=== PATIENT | male | born 1955 | race Caucasian/White ===

== ENCOUNTER 2017-08-27 07:00 | Day surgery (SDC) | payer OTHER ==
[2017-08-27] MEDS ORDERED: Ringers Lactate 1,000 ML IV ONE (07:46)
[2017-08-27] MEDS ORDERED: PROPOFOL 200 MG/20 ML VIAL IV ONE ×2 (08:38→09:51)
[2017-08-27] MEDS ORDERED: FENTANYL CITR 100 MCG/2 ML ONE (08:38)
[2017-08-27] MEDS ORDERED: MIDAZOLAM HCL 2 MG/2 ML INJ ONE (08:38)
--- NOTE | 2017-08-27 09:46 | ENDO RPT ---
[address], [address] COLONOSCOPY PROCEDURE REPORT EXAM DATE: 08/27/2017 PATIENT NAME: Vaughn Thaukr MR #: [id number] BIRTHDATE: 1955 ATTENDING: Kana Alexander DR STATUS: outpatient SPLASH LINE OPERATOR: Gregory Torres, [place] Pradhan RN, and Farida Becerra RN INDICATIONS: The patient is a 61 yr old Male here for a colonoscopy due to colon cancer screening PROCEDURE PERFORMED: Colonoscopy with biopsy - cold polypectomy MEDICATIONS: Per Anesthesia. ESTIMATED BLOOD LOSS: None CONSENT: The patient understands the risks and benefits of the procedure and understands that these risks include, but are not limited to: sedation, allergic reaction, infection, perforation and/or bleeding. Alternative means of evaluation and treatment include, among others: physical exam, x-rays, and/or surgical intervention. The patient elects to proceed with this endoscopic procedure. DESCRIPTION OF PROCEDURE: During intra-op preparation period all mechanical medical equipment was checked for proper function. Hand hygiene and appropriate measures for infection prevention was taken. Procedure, possible complications, alternatives including, but not limited to possibility of bleeding, perforation, tear, infection, sepsis, need for surgery, need for blood transfusion, were explained to the patient. After the risks, benefits and alternatives of the procedure were thoroughly explained, Informed consent was verified, confirmed and timeout was successfully executed by the treatment team. The patient was placed in the left lateral position. A digital rectal exam was performed and revealed no abnormalities of the rectum. After appropriate level of anesthesia, the scope was passed. The EC-[id number] ([id number]) endoscope was introduced through the anus and advanced to the cecum, which was identified by both the appendix and ileocecal valve. The quality of the prep was fair. The instrument was then slowly withdrawn as the colon was fully examined. Scope withdrawal time was 15 minutes. COLON FINDINGS: Multiple medium sized smooth sessile polyps with friable surfaces were found at the cecum. A polypectomy was performed using snare cautery. The resection was complete, the polyp tissue was completely retrieved and sent to histology. Multiple medium sized smooth and polypoid shaped semi-pedunculated polyps with friable surfaces were found in the sigmoid colon and at the hepatic flexure. A polypectomy was performed using snare cautery. The resection was complete, the polyp tissue was completely retrieved and sent to histology. Retroflexed views revealed no abnormalities. The scope was then completely withdrawn from the patient and the procedure terminated. ADVERSE EVENTS: There were no complications. IMPRESSIONS: 1. Multiple medium sized sessile polyps were found at the cecum; polypectomy was performed in a piecemeal fashion using snare cautery 2. Multiple medium sized semi-pedunculated polyps were found in the sigmoid colon and at the hepatic flexure; polypectomy was performed in a piecemeal fashion using snare cautery RECOMMENDATIONS: 1. avoid NSAIDS for 2 weeks 2. fiber rich diet 3. follow-up: office 2 week(s) 4. increase dietary water RECALL: Return in 3 month(s) for Colonoscopy, pending biopsy results. Multiple polyps throughout colon,large removed today, smaller will be removed on next colonoscopy Kana Alexander DR eSigned: Kana Alexander DR 08/27/2017 9:46 AM cc: CPT CODES: ICD9 CODES: PATIENT NAME: Vaughn Thakur MR#: [id number]
== END 2017-08-27 10:21 | disposition home or self-care (01) ==
LOC: ENDO 07:00
PROVIDERS: ATTEND Surgery
PROC: 0DBL8ZX Excision of Transverse Colon, Via Natural or Artificial Opening Endoscopic, Diagnostic (ICD-10-PCS; 2017-08-27)
PROC: 0DBN8ZX Excision of Sigmoid Colon, Via Natural or Artificial Opening Endoscopic, Diagnostic (ICD-10-PCS; 2017-08-27)
PROC: 0DBH8ZX Excision of Cecum, Via Natural or Artificial Opening Endoscopic, Diagnostic (ICD-10-PCS; principal; 2017-08-27 08:30)
DX: Z12.11 Encounter for screening for malignant neoplasm of colon (principal); D12.0 Benign neoplasm of cecum; D12.3 Benign neoplasm of transverse colon; D12.5 Benign neoplasm of sigmoid colon; J44.9 Chronic obstructive pulmonary disease, unspecified; I10 Essential (primary) hypertension; Z86.19 Personal history of other infectious and parasitic diseases; Z87.891 Personal history of nicotine dependence; Z88.8 Allergy status to other drugs, medicaments and biological substances
CPT/HCPCS: 88305; J2250; J3010

== ENCOUNTER 2018-01-25 15:49 | Inpatient (IN) | payer OTHER, SELFPAY ==
--- OUTSIDE RECORDS SUMMARY | 2018-01-25 15:52 | XMS REPORT | Clinical Summary ---
:1955 Author Organization [facility] Address [address] [place] [address] Care Team Providers Name Role Phone Pcp, No Primary Care Provider Unavailable Allergies Active Allergy Reactions Severity Noted Date Comments Budesonide Shortness Of Breath High 09/17/2017 Medications Medication Sig Dispensed Refills Start End Date Status Date tamsulosin Take 0.4 mg by 0 Active (FLOMAX) 0.4 mg mouth daily. Cp24 24 hr capsule codeine 30 MG Take 30 mg by 0 Active tablet mouth. montelukast Take 10 mg by 0 Active (SINGULAIR) 10 mg mouth nightly. tablet oxybutynin Take 1 tablet (5 60 tablet 1 12/09/19 Active (DITROPAN) 5 MG mg total) by mouth 8 19 tablet every 8 (eight) hours as needed (bladder spasms). docusate sodium Take 1 capsule 10 capsule 0 10/06/19 (COLACE) 100 MG (100 mg total) by 8 18 capsule mouth 2 (two) times daily for 10 days. ferrous sulfate Take 1 tablet (325 60 tablet 1 11/23/19 Discontinued 325 (65 FE) MG mg total) by mouth 8 18 tablet 2 (two) times daily. mirabegron Take 1 tablet (50 30 tablet 0 11/23/19 Discontinued (MYRBETRIQ) 50 mg mg total) by mouth 8 18 Tb24 ER tablet daily. oxybutynin Take 1 tablet (5 30 tablet 0 12/09/19 Discontinued (DITROPAN) 5 MG mg total) by mouth 8 18 tablet every 8 (eight) hours as needed (bladder spasms). ciprofloxacin HCl ciprofloxacin 500 0 12/09/19 Discontinued (CIPRO) 500 MG mg tablet daily 18 tablet docusate sodium Take 1 capsule 10 capsule 0 12/19/19 (COLACE) 100 MG (100 mg total) by 8 18 capsule mouth 2 (two) times daily for 10 days. Active Problems Problem Noted Date Hematuria, unspecified type 12/03/2017 Hepatocellular carcinoma 11/24/2017 Chronic hepatitis C without hepatic coma 11/24/2017 Immunity status testing 11/24/2017 Cancer screening 11/24/2017 Other cirrhosis of liver 11/24/2017 SOB (shortness of breath) 09/19/2017 Abdominal pain, unspecified abdominal location 09/17/2017 Encounters Date Type Specialty Care Team Description 12/03/2017 - Hospital Encounter Oncology [place], Hematuria, unspecified type (Primary Dx); 12/08/2017 Renan Siegel MD Hepatocellular carcinoma; Shyanne Cardona MD Abdominal pain, unspecified abdominal location; Chronic hepatitis C without hepatic coma (HCC); Bladder mass; Malignant neoplasm of urinary bladder, unspecified site (HCC) 11/22/2017 Office Visit Hepatology Marie Mohr Hepatocellular carcinoma ( Primary Dx); MD Sacha Abdominal pain, unspecified abdominal location; Dangelo Quesada Malignant neoplasm of urinary bladder, unspecified site (HCC); MD [place] Chronic hepatitis C without hepatic coma (HCC); Immunity status testing; Chronic hepatitis C without hepatic coma; Cancer screening; Other cirrhosis of liver 09/20/2017 Anesthesia Event Crys Elizondo CRNA 09/20/2017 Surgery Jeff CYSTOSCOPY,TURBT MD [place] 09/17/2017 - Emergency General Internal Damien Doe Abdominal pain, unspecified abdominal location (Primary Dx); 09/25/2017 Medicine MD Henry Gross hematuria; Edilma Ruelas Malignant neoplasm of urinary bladder, unspecified site (HCC); D Hepatitis C virus infection without hepatic coma, unspecified chronicity; Shyanne Cardona MD Chronic obstructive pulmonary disease, unspecified COPD type (HCC); Jeff, Cirrhosis of liver without ascites, unspecified hepatic cirrhosis type (HCC); MD [place] Hepatocellular carcinoma (HCC); Portal vein thrombosis; Immunity status testing; Chronic hepatitis C without hepatic coma (HCC); SOB (shortness of breath) after 01/24/2017 Family History Medical History Relation Name Comments Liver cancer Brother Relation Name Status Comments Brother Social History Tobacco Use Types Packs/Day Years Used Date Former Smoker Smokeless Tobacco: Never Used Comments: quit 1 year Alcohol Use Drinks/Week oz/Week Comments Yes quit 2 years Sex Assigned at Date Recorded Not on file Job Start Date Occupation Industry Not on file Not on file Not on file Travel History Travel Start Travel End No recent travel history available. Last Filed Vital Signs Vital Sign Reading Time Taken Blood Pressure 122/57 12/08/2017 11:00 AM CDT Pulse 67 12/08/2017 11:00 AM CDT Temperature 36.6 C (97.8 F) 12/08/2017 11:00 AM CDT Respiratory Rate 19 12/08/2017 11:00 AM CDT Oxygen Saturation 97% 12/08/2017 11:00 AM CDT Inhaled Oxygen Concentration 21% 09/17/2017 9:37 PM CDT Weight 106.1 kg (234 lb) 12/03/2017 8:00 PM CDT Height 182.9 cm (6') 12/03/2017 8:00 PM CDT Body Mass Index 31.74 12/03/2017 8:00 PM CDT Plan of Treatment Health Maintenance Due Date Last Done Comments INFLUENZA VACCINE 12/17/2017 Procedures Procedure Name Priority Date/Time Associated Comments Diagnosis HEMOGLOBIN AND Routine 12/08/2017 4:05 Results for this HEMATOCRIT AM CDT procedure are in the results section. HEMOGLOBIN AND Routine 12/07/2017 3:55 Results for this HEMATOCRIT AM CDT procedure are in the results section. HEMOGLOBIN AND Routine 12/06/2017 6:50 Results for this HEMATOCRIT AM CDT procedure are in the results section. BASIC METABOLIC PANEL Routine 12/06/2017 6:50 Results for this (7) AM CDT procedure are in the results section. BASIC METABOLIC PANEL Routine 12/05/2017 5:22 Results for this (7) AM CDT procedure are in the results section. HEPATIC FUNCTION Routine 12/05/2017 5:22 Results for this PANEL AM CDT procedure are in the results section. POCT-GLUCOSE METER Routine 12/04/2017 5:15 Results for this PM CDT procedure are in the results section. CBC W/PLT COUNT & Routine 12/04/2017 3:44 Results for this AUTO DIFFERENTIAL AM CDT procedure are in the results section. BASIC METABOLIC PANEL Routine 12/04/2017 3:44 Results for this (7) AM CDT procedure are in the results section. CBC W/PLT COUNT & Routine 12/04/2017 3:44 Results for this AUTO DIFFERENTIAL AM CDT procedure are in the results section. URINE CULTURE Routine 12/03/2017 6:06 Results for this PM CDT procedure are in the results section. URINALYSIS W/ REFLEX Routine 12/03/2017 6:05 Results for this URINE CULTURE PM CDT procedure are in the results section. BLOOD CULTURE Routine 12/03/2017 4:41 Results for this PM CDT procedure are in the results section. BLOOD CULTURE Routine 12/03/2017 4:41 Results for this PM CDT procedure are in the results section. CBC W/PLT COUNT & STAT 12/03/2017 11:55 Results for this AUTO DIFFERENTIAL AM CDT procedure are in the results section. MAGNESIUM STAT 12/03/2017 11:55 Results for this AM CDT procedure are in the results section. PT/APTT STAT 12/03/2017 11:55 Results for this AM CDT procedure are in the results section. CBC W/PLT COUNT & STAT 12/03/2017 11:55 Results for this AUTO DIFFERENTIAL AM CDT procedure are in the results section. COMPREHENSIVE STAT 12/03/2017 11:55 Results for this METABOLIC PANEL AM CDT procedure are in the results section. URINALYSIS Routine 12/03/2017 11:50 Results for this MICROSCOPIC AM CDT procedure are in the results section. URINALYSIS WITH STAT 12/03/2017 11:50 Results for this MICROSCOPIC IF AM CDT procedure are in INDICATED the results section. PULMONARY FUNCTION - 09/25/2017 3:52 SCAN PM CDT C-REACTIVE PROTEIN Routine 09/25/2017 5:49 Results for this AM CDT procedure are in the results section. PROCALCITONIN Routine 09/25/2017 5:49 Results for this AM CDT procedure are in the results section. BLOOD CULTURE Routine 09/25/2017 5:48 Results for this AM CDT procedure are in the results section. URINALYSIS W/ REFLEX Routine 09/24/2017 9:24 Results for this URINE CULTURE PM CDT procedure are in the results section. URINE CULTURE Routine 09/24/2017 9:24 Results for this PM CDT procedure are in the results section. XR CHEST 1 VIEW STAT 09/24/2017 11:36 Results for this PORTABLE/BEDSIDE AM CDT procedure are in the results section. BASIC METABOLIC PANEL Routine 09/24/2017 6:10 Results for this (7) AM CDT procedure are in the results section. CBC (HEMOGRAM ONLY) Routine 09/24/2017 6:10 Results for this AM CDT procedure are in the results section. BASIC METABOLIC PANEL Routine 09/23/2017 5:20 Results for this (7) AM CDT procedure are in the results section. CBC (HEMOGRAM ONLY) Routine 09/23/2017 5:20 Results for this AM CDT procedure are in the results section. BASIC METABOLIC PANEL Routine 09/22/2017 5:19 Results for this (7) AM CDT procedure are in the results section. CBC (HEMOGRAM ONLY) Routine 09/22/2017 5:19 Results for this AM CDT procedure are in the results section. TISSUE EXAM AP Routine 09/21/2017 10:18 Results for this PM CDT procedure are in the results section. US LIVER BIOPSY Routine 09/21/2017 5:21 Results for this PM CDT procedure are in the results section. SPIROMETRY Routine 09/21/2017 10:13 Results for this AM CDT procedure are in the results section. T SPOT TB Routine 09/21/2017 5:08 Results for this AM CDT procedure are in the results section. TISSUE EXAM AP Routine 09/20/2017 5:42 Results for this PM CDT procedure are in the results section. CYSTOSCOPY,TURBT 09/20/2017 3:00 Hematuria, PM CDT unspecified type Special Needs REQ 1500 OR SOONER [id number]\, SERUM Routine 09/20/2017 5:46 AM Results for this CDT procedure are in the results section. HEPATITIS B CORE ANTIBODY, TOTAL Routine 09/20/2017 5:46 AM Results for this CDT procedure are in the results section. HEPATITIS A ANTIBODY, IGG Routine 09/20/2017 5:46 AM Results for this CDT procedure are in the results section. HEPATITIS B SURFACE ANTIBODY Routine 09/20/2017 5:46 AM Results for this CDT procedure are in the results section. CARCINOEMBRYONIC ANTIGEN (CEA) Routine 09/20/2017 5:46 AM Results for this CDT procedure are in the results section. ALPHA FETOPROTEIN (AFP), TUMOR Routine 09/20/2017 5:46 AM Results for this MARKER CDT procedure are in the results section. COMPREHENSIVE METABOLIC PANEL Routine 09/20/2017 5:46 AM Results for this CDT procedure are in the results section. CBC (HEMOGRAM ONLY) Routine 09/20/2017 5:46 AM Results for this CDT procedure are in the results section. MAGNESIUM Routine 09/20/2017 5:46 AM Results for this CDT procedure are in the results section. LIPID PANEL Routine 09/20/2017 5:46 AM Results for this CDT procedure are in the results section. PROTHROMBIN TIME/INR Routine 09/20/2017 5:46 AM Results for this CDT procedure are in the results section. HEMOGLOBIN A1C Routine 09/20/2017 5:46 AM Results for this CDT procedure are in the results section. HEPATIC FUNCTION PANEL Routine 09/20/2017 5:46 AM Results for this CDT procedure are in the results section. CALCIUM, IONIZED Routine 09/20/2017 5:46 AM Results for this CDT procedure are in the results section. PHOSPHORUS Routine 09/20/2017 5:46 AM Results for this CDT procedure are in the results section. FERRITIN Routine 09/20/2017 5:46 AM Results for this CDT procedure are in the results section. CERULOPLASMIN Routine 09/20/2017 5:45 AM Results for this CDT procedure are in the results section. HEPATITIS C PCR, QUANTITATIVE Routine 09/20/2017 5:45 AM Results for this CDT procedure are in the results section. HEPATITIS B SURFACE ANTIGEN Routine 09/20/2017 5:45 AM Results for this CDT procedure are in the results section. CARBOHYDRATE ANTIGEN 19-9 (CA Routine 09/20/2017 5:45 AM Results for this 19-9) CDT procedure are in the results section. IRON, TIBC, % SAT. (WITHOUT Routine 09/20/2017 5:45 AM Results for this FERRITIN) CDT procedure are in the results section. ALPHA FETOPROTEIN (AFP), TUMOR Routine 09/19/2017 2:22 PM Results for this MARKER CDT procedure are in the results section. COMPREHENSIVE METABOLIC PANEL Routine 09/19/2017 6:19 AM Results for this CDT procedure are in the results section. CBC (HEMOGRAM ONLY) Routine 09/19/2017 6:19 AM Results for this CDT procedure are in the results section. MAGNESIUM Routine 09/19/2017 6:19 AM Results for this CDT procedure are in the results section. LIPID PANEL Routine 09/19/2017 6:19 AM Results for this CDT procedure are in the results section. HEMOGLOBIN A1C Routine 09/19/2017 6:19 AM Results for this CDT procedure are in the results section. HEPATIC FUNCTION PANEL Routine 09/19/2017 6:19 AM Results for this CDT procedure are in the results section. CALCIUM, IONIZED Routine 09/19/2017 6:19 AM Results for this CDT procedure are in the results section. PHOSPHORUS Routine 09/19/2017 6:19 AM Results for this CDT procedure are in the results section. PROTHROMBIN TIME/INR Routine 09/19/2017 6:18 AM Results for this CDT procedure are in the results section. MR ABDOMEN WITH/WITHOUT IV Routine 09/18/2017 2:39 PM Results for this CONTRAST CDT procedure are in the results section. CBC W/PLT COUNT & AUTO Routine 09/18/2017 3:48 AM Results for this DIFFERENTIAL CDT procedure are in the results section. CBC W/PLT COUNT & AUTO Routine 09/18/2017 3:48 AM Results for this DIFFERENTIAL CDT procedure are in the results section. MAGNESIUM Routine 09/18/2017 3:48 AM Results for this CDT procedure are in the results section. LIPID PANEL Routine 09/18/2017 3:48 AM Results for this CDT procedure are in the results section. PROTHROMBIN TIME/INR Routine 09/18/2017 3:48 AM Results for this CDT procedure are in the results section. HEMOGLOBIN A1C Routine 09/18/2017 3:48 AM Results for this CDT procedure are in the results section. HEPATIC FUNCTION PANEL Routine 09/18/2017 3:48 AM Results for this CDT procedure are in the results section. CALCIUM, IONIZED Routine 09/18/2017 3:48 AM Results for this CDT procedure are in the results section. BASIC METABOLIC PANEL (7) Routine 09/18/2017 3:48 AM Results for this CDT procedure are in the results section. CBC W/PLT COUNT & AUTO Routine 09/18/2017 3:48 AM Results for this DIFFERENTIAL CDT procedure are in the results section. PHOSPHORUS Routine 09/18/2017 3:48 AM Results for this CDT procedure are in the results section. CBC W/PLT COUNT & AUTO Routine 09/18/2017 3:48 AM Results for this DIFFERENTIAL CDT procedure are in the results section. CT ABDOMEN/PELVIS WITH IV STAT 09/17/2017 6:18 PM Results for this CONTRAST CDT procedure are in the results section. CT CHEST WITH IV CONTRAST STAT 09/17/2017 6:18 PM Results for this CDT procedure are in the results section. CBC W/PLT COUNT & AUTO STAT 09/17/2017 3:19 PM Results for this DIFFERENTIAL CDT procedure are in the results section. BASIC METABOLIC PANEL (7) STAT 09/17/2017 3:19 PM Results for this CDT procedure are in the results section. CBC W/PLT COUNT & AUTO STAT 09/17/2017 3:19 PM Results for this DIFFERENTIAL CDT procedure are in the results section. URINALYSIS W/ REFLEX URINE STAT 09/17/2017 3:01 PM Results for this CULTURE CDT procedure are in the results section. URINE CULTURE STAT 09/17/2017 3:01 PM Results for this CDT procedure are in the results section. after 01/24/2017 Results Hemoglobin and hematocrit (12/08/2017 4:05 AM CDT)Only the most recent of3 resultswithin the time period is included. Hemoglobin 10.6 (L) 13.7 - 17.5 GM/DL [facility] Hematocrit 35.6 (L) 40.1 - 51.0 % [facility] Specimen Blood Performing Organization Address City/State/Zipcode Phone Number [address] [address] CENTER Basic metabolic panel (12/06/2017 6:50 AM CDT)Only the most recent of8 resultswithin the time period is included. Sodium 139 136 - 145 meq/L [facility] Potassium 4.2 3.5 - 5.1 meq/L [facility] Chloride 108 (H) 98 - 107 meq/L [facility] CO2 27 22 - 29 meq/L [facility] BUN 7 7 - 21 mg/dL [facility] Creatinine 0.70 0.57 - 1.25 mg/dL [facility] Glucose 89 70 - 105 mg/dL [facility] Calcium 8.7 8.4 - 10.2 mg/dL [facility] EGFR 114Comment: ESTIMATED GFR IS mL/min/1.73 sq m [facility] NOT ACCURATE [facility] CLEARANCE IN PREDICTING GLOMERULAR FILTRATION RATE. ESTIMATED GFR IS NOT APPLICABLE FOR DIALYSIS PATIENTS. Specimen Blood - Arm, Left Performing Organization Address City/[facility] Cent[facility]ode Phone Number [address] [address] [phone] [place] Hepatic function panel (12/05/2017 5:22 AM CDT)Only the most recent of4 resultswithin the time period is included. Protein, Total 6.1 6.0 - 8.3 gm/dL [facility] Albumin 3.1 (L) 3.5 - 5.0 g/dL [facility] Total Bilirubin 0.4 0.2 - 1.2 mg/dL [facility] Bilirubin, Direct 0.2 0.1 - 0.5 mg/dL [facility] Alkaline Phosphatase 131 40 - 150 U/L [facility] AST 66 (H) 5 - 34 U/L [facility] ALT 35 6 - 55 U/L [facility] Specimen Blood - Arm, Left Performing Organization Address [facility] Phone Number [address] [address] [phone] [place] POC-Glucose meter (12/04/2017 5:15 PM CDT) POC-Glucose Meter 95Comment: TESTED AT 70 - 110 mg/dL [address] [address] Specimen Blood Performing Organization Address City/[facility]/Zipcode Phone Number [address] [address] [phone] CENTER CBC with platelet count + automated diff (12/04/2017 3:44 AM CDT)Only the most recent of5 resultswithin the time period is included. WBC 3.1 (L) 3.5 - 10.5 K/L [facility] RBC 4.36 (L) 4.63 - 6.08 M/L [facility] Hemoglobin 10.4 (L) 13.7 - 17.5 GM/DL [facility] Hematocrit 35.1 (L) 40.1 - 51.0 % [facility] MCV 80.5 79.0 - 92.2 fL [facility] MCH 23.9 (L) 25.7 - 32.2 pg [facility] MCHC 29.6 (L) 32.3 - 36.5 GM/DL [facility] RDW 15.6 (H) 11.6 - 14.4 % [facility] Platelets 137 (L) 150 - 450 K/CU MM [facility] MPV 10.6 9.4 - 12.4 fL [facility] nRBC 0 0 - 0 /100 WBC [facility] % Neutros 62 % [facility] % Lymphs 21 % [facility] % Monos 13 % [facility] % Eos 3 % [facility] % Baso 0 % [facility] # Neutros 1.92 1.78 - 5.38 K/L [facility] # Lymphs 0.64 (L) 1.32 - 3.57 K/L [facility] # Monos 0.41 0.30 - 0.82 K/L [facility] # Eos 0.09 0.04 - 0.54 K/L [facility] # Baso 0.01 0.01 - 0.08 K/L [facility] Immature Granulocytes-Relative 0 0 - 1 % [facility] Specimen Blood - Arm, Left Performing Organization Address City/[facility]/Zipcode Phone Number [facility] [address] [place] [phone] CENTER Urine culture (12/03/2017 6:06 PM CDT)Only the most recent of3 resultswithin the time period is included. Result No growth [facility] Specimen Urine - Urine, [place] Performing Organization Address [facility]/Zipcode Phone Number [address] [address] [phone] [place] Urinalysis w/Microscopic + Reflex to Culture (12/03/2017 6:05 PM CDT)Only the most recent of3 resultswithin the time period is included. Color, UA Brown [facility] Clarity, UA Cloudy [facility] Specific [place], UA 1.030 1.001 - 1.[address] [facility] pH, UA 6.0 5.0 - 8.[address] [facility] Protein, UA 100 mg/dL (A) Negative [facility] Glucose, UA Negative Negative [facility] Ketones, UA Negative Negative [facility] Bilirubin, UA Positive (A) Negative [facility] Blood, UA Large (A) Negative [facility] Nitrite, UA Positive (A) Negative [facility] Leukocytes, UA Trace (A) Negative [facility] Urobilinogen, UA 4.0 (H) 0.2 - 1.0 mg/dL [facility] RBC, UA >183 /HPF [facility] WBC, UA 0 /HPF [facility] Specimen Source [facility] Specimen Urine - Urine, [place] Performing Organization Address [facility]/Zipcode Phone Number [address] [address] CENTER Blood culture (12/03/2017 4:41 PM CDT)Only the most recent of3 resultswithin the time period is included. Result No growth in 5 days [facility] Specimen Blood - Arm, Right Performing Organization Address [facility] Cent[facility]ode Phone Number [address] [address] [place] PT/aPTT (12/03/2017 11:55 AM CDT) Protime 14.5 11.7 - 14.[address] [facility] INR 1.1 <=5.[address] [facility] PTT 28.2 22.5 - 36.[address] [facility] Specimen Blood - Arm, Left Narrative Performed At [facility] RECOMMENDED COUMADIN/WARFARIN INR THERAPY RANGES STANDARD DOSE: 2.0 - 3.0 Includes: PROPHYLAXIS for venous thrombosis, systemic embolization; TREATMENT for venous thrombosis and/or pulmonary embolus. HIGH RISK: Target INR is 2.5-3.5 for patients with mechanical heart valves. Performing Organization Address [facility] Centercodc Phone Number [address] [address] [phone] CENTER Magnesium (12/03/2017 11:55 AM CDT)Only the most recent of4 resultswithin the time period is included. Magnesium 1.8 1.6 - 2.6 mg/dL [facility] Specimen Blood - Arm, Left Performing Organization Address [facility] Centercode Phone Number [address] [address] [place] Comprehensive metabolic panel (12/03/2017 11:55 AM CDT)Only the most recent of3 resultswithin the time period is included. Protein, Total 6.7 6.0 - 8.3 gm/dL [facility] Albumin 3.5 3.5 - 5.0 g/dL [facility] Alkaline Phosphatase 141 40 - 150 U/L [facility] Total Bilirubin 0.4 0.2 - 1.2 mg/dL [facility] Sodium 137 136 - 145 meq/L [facility] Potassium 3.6 3.5 - 5.1 meq/L [facility] Chloride 105 98 - 107 meq/L [facility] CO2 26 22 - 29 meq/L [facility] BUN 10 7 - 21 mg/dL [facility] Creatinine 0.78 0.57 - 1.25 mg/dL [facility] Glucose 112 (H) 70 - 105 mg/dL [facility] Calcium 9.2 8.4 - 10.2 mg/dL [facility] AST 68 (H) 5 - 34 U/L [facility] ALT 39 6 - 55 U/L [facility] EGFR 101Comment: ESTIMATED mL/min/1.73 sq m [facility] GFR IS NOT ACCURATE [facility] CREATININE CLEARANCE IN PREDICTING GLOMERULAR FILTRATION RATE. ESTIMATED GFR IS NOT APPLICABLE FOR DIALYSIS PATIENTS. Specimen Blood - Arm, Left Performing Organization Address City/[facility]/Zipcode Phone Number [address] [address] [phone] CENTER Urinalysis Microscopic Only (12/03/2017 11:50 AM CDT) RBC, UA 500 /HPF [facility] WBC, UA 10 /HPF [facility] Specimen Urine - Urine, Voided Performing Organization Address City/[facility] Centercode Phone Number [address] [place] [address] [phone] [place] Urinalysis with Microscopic If Indicated (12/03/2017 11:50 AM CDT) Color, UA Brown [facility] Clarity, UA Cloudy [facility] Specific [place], UA 1.030 1.001 - 1.[address] [facility] pH, UA 6.0 5.0 - 8.[address] [facility] Protein, UA 200 mg/dL (A) Negative [facility] Glucose, UA Negative Negative [facility] Ketones, UA Negative Negative [facility] Bilirubin, UA Positive (A) Negative [facility] Blood, UA Large (A) Negative [facility] Nitrite, UA Positive (A) Negative [facility] Leukocytes, UA Trace (A) Negative [facility] Urobilinogen, UA 6.0 (H) 0.2 - 1.0 mg/dL [facility] Specimen Source [facility] Specimen Urine - Urine, Voided Performing Organization Address [facility] Centercode Phone Number [address] [address] [place] PULMONARY FUNCTION - SCAN (09/25/2017 3:52 PM CDT) Narrative Performed At Procalcitonin (09/25/2017 5:49 AM CDT) Procalcitonin 0.10 (H) <0.05 ng/mL [facility] Specimen Blood - Arm, Left Narrative Performed At [facility] SEPSIS RISK (ng/mL) Low:0.05-0.50 Intermediate: 0.51-2.00 High: >=2.01 Performing Organization Address [facility] Phone Number [address] [place] [address] CENTER C-Reactive Protein (09/25/2017 5:49 AM CDT) CRP 6.73 (H) 0.00 - 0.50 mg/dL [facility] Specimen Blood - Arm, Left Performing Organization Address City/[facility]/Zipcode Phone Number [address] [address] [place] XR chest 1 view portable / bedside (09/24/2017 11:36 AM CDT) Narrative Performed At FINAL REPORT [facility] Two frontal chest images compared to CT September 17 Discussion: Linear atelectasis or scar left lateral lingula unchanged from CT. Ill-defined patchy opacity right lower lung is nonspecific, not confirmed on recent CT. Atelectasis and acute infiltrate are possibilities. Correlate clinically for infection. No effusion or pneumothorax. IMPRESSIONS: Suspected new ill-defined patchy opacity right lower lung. Correlate clinically and consider short-term chest x-ray follow-up. Signed: Glory Lamas MD Report Verified Date/Time:09/24/2017 12:06:36 Reading Location: [facility] Radiology Reading Room Procedure Note Interface, External Ris In - 09/24/2017 12:08 PM CDT FINAL REPORT Two frontal chest images compared to CT September 17 Discussion: Linear atelectasis or scar left lateral lingula unchanged from CT. Ill-defined patchy opacity right lower lung is nonspecific, not confirmed on recent CT. Atelectasis and acute infiltrate are possibilities. Correlate clinically for infection. No effusion or pneumothorax. IMPRESSIONS: Suspected new ill-defined patchy opacity right lower lung. Correlate clinically and consider short-term chest x-ray follow-up. Signed: Glory Lamas MD Report Verified Date/Time: 09/24/2017 12:06:36 Reading Location: [facility] Radiology Reading Room Performing Organization Address City/State/[facility] Cent[facility]ode Phone Number GE RIS CBC (Hemogram only) (09/24/2017 6:10 AM CDT)Only the most recent of5 resultswithin the time period is included. WBC 4.6 3.5 - 10.5 K/L [facility] RBC 3.99 (L) 4.63 - 6.08 M/L [facility] Hemoglobin 11.1 (L) 13.7 - 17.5 GM/DL [facility] Hematocrit 34.9 (L) 40.1 - 51.0 % [facility] MCV 87.5 79.0 - 92.[address] [facility] MCH 27.8 25.7 - 32.2 [address] [facility] MCHC 31.8 (L) 32.3 - 36.5 GM/DL [facility] RDW 13.4 11.6 - 14.4 % [facility] Platelets 136 (L) 150 - 450 K/CU MM [facility] MPV 10.1 9.4 - 12.[address] [facility] nRBC 0 0 - 0 /100 WBC [facility] Specimen Blood Performing Organization Address City/State/Zipcode Phone Number [facility] [address] [place] [address] CENTER Tissue Exam (09/21/2017 10:18 PM CDT)Only the most recent of2 resultswithin the time period is included. Case Report Surgical Pathology Report Case: [id number] [facility] Authorizing Provider:Edilma Ruelas DCollected: 09/21/2017 2218 [facility] Ordering Location: [address] Received: 09/21/2017 2223 Service Pathologist: Earl Anand MD Specimen:Biopsy, Liver, Bx DIAGNOSIS LIVER, ULTRASOUND-GUIDED BIOPSIES OF MASS [facility] - HEPATOCELLULAR CARCINOMA, MODERATELY DIFFERENTIATED [facility] Signing Pathologist Direct Phone Line: [phone] CPT Code(s) 85567, 33265, 27302, [address] [facility] CLINICAL HISTORY Liver cirrhosis and liver mass, [facility] hepatitis C and urinary bladder [facility] cancer SPECIMEN SOURCE Ultrasound-guided biopsy of left [facility] hepatic mass [facility] GROSS DESCRIPTION Received in formalin labeled with patient's name and MRN are multiple saunders white tissue cores ranging from 0.2 to 0.6 cm. Entirely submitted in A1. [facility] MICROSCOPIC DESCRIPTION Section shows a moderately differentiated hepatocellular carcinoma disposed in thickened trabecular architecture ( reticulin stain). The background liver is cirrhotic. [facility] Immunostain for CD34 shows aberrant staining in the sinusoidal endothelial cells. Immunostain for CHU 3 is negative. [facility] SPECIAL STUDIES The following special studies were performed on this case and the interpretation is incorporated in the diagnostic report above: [facility] The immunohistochemistry test was developed and its performance characteristics determined by [facility], Pathology Laboratory. It has not been cleared or approved by the U.S. Food and [facility] Drug Administration. The FDA has determined that such clearance or approval is not necessary. The test is used for clinical purposes. It should not be regarded as investigational or for research. This laboratory is certified under the Clinical Laboratory Improvement Amendments of 1988 (CLIA-88) as qualified to perform high complexity clinical laboratory testing. Specimen Tissue - Biopsy, Liver Performing Organization Address City/State/Zipcode Phone Number [facility] [address] [place] [address] [phone] [facility] liver biopsy (09/21/2017 5:21 PM CDT) Narrative Performed At FINAL REPORT [facility] Ultrasound guided liver biopsy dated 09/21/2017 Procedure: Core liver biopsy. Preprocedure diagnosis: Liver mass Post procedure diagnosis: Liver mass Radiologist performing procedure: James Barton MD Name of Store Host: None Sedation: Moderate sedation was administered.2 mg of Versed and 100 mcg fentanyl IV was used for moderate sedation monitored under my direction. Total intraservice time of the sedation was 30 minutes. The patient's vital signs were monitored throughout the procedure and recorded in the patient's medical record by the nurse. Anesthesia: 1% Xylocaine mixed with sodium bicarbonate local anesthesia. Technique/specimen removed: After obtained informed consent, ultrasound guided core biopsy of the liver was performed under usual sterile technique. Using an 18 gauge core biopsy needle, puncture was made in the mid upper abdomen with real time ultrasound guidance. Two passes were obtained from left hepatic lobe mass. Patient tolerated procedure well. Complication: None Estimated Blood Loss: None Graft/implants: None Impression: Successful ultrasound-guided core biopsy of the left hepatic lobe mass. Signed: James Barton MD Report Verified Date/Time:09/21/2017 17:50:41 Reading Location: [address] Ultrasound Reading Room Procedure Note Interface, External Ris In - 09/21/2017 5:53 PM CDT FINAL REPORT Ultrasound guided liver biopsy dated 09/21/2017 Procedure: Core liver biopsy. Preprocedure diagnosis: Liver mass Post procedure diagnosis: Liver mass Radiologist performing procedure: James Barton MD Name of Store Host: None Sedation: Moderate sedation was administered. 2 mg of Versed and 100 mcg fentanyl IV was used for moderate sedation monitored under my direction. Total intraservice time of the sedation was 30 minutes. The patient's vital signs were monitored throughout the procedure and recorded in the patient's medical record by the nurse. Anesthesia: 1% Xylocaine mixed with sodium bicarbonate local anesthesia. Technique/specimen removed: After obtained informed consent, ultrasound guided core biopsy of the liver was performed under usual sterile technique. Using an 18 gauge core biopsy needle, puncture was made in the mid upper abdomen with real time ultrasound guidance. Two passes were obtained from left hepatic lobe mass. Patient tolerated procedure well. Complication: None Estimated Blood Loss: None Graft/implants: None Impression: Successful ultrasound-guided core biopsy of the left hepatic lobe mass. Signed: James Barton MD Report Verified Date/Time: 09/21/2017 17:50:41 Reading Location: [address] Ultrasound Reading Room Performing Organization Address City/State/Zipcode Phone Number [facility] Pulmonary Funct Lab Spirometry (09/21/2017 10:13 AM CDT) Narrative Performed At Walter Arroyo RRT, SHASHI 09/21/2017 10:13 AM [facility] PFT CHARTING REPORT Infection Control/Hand Hygiene procedures followed throughout the encounter with patient: Yes Patient Identification Method: Patient name verified on armband, and Medical record on armband, Is the order complete?: Yes Account ID#: [id number] Patient Name: Vaughn Thakur Birthdate: 1955 Age: 61 y.o.Sex: male Admission Date: 09/17/2017Patient Status: Inpatient Reasons/Symptom for having the Test?: surgical clearance and other diagnosis/symptoms as noted Type of study/treatment ordered by physician: Bedside Spirometry without bronchodilators Lab Results Component Value Date HGB 11.6 (L) 09/20/2017 Ranges: Adult Male 13 - 16.8 g/dlAdult Female 12 - 15 g/dl 6 Minute Walk (read only) 09/21/2017 09/21/2017 09/21/2017 Pulse 62 72 70 SpO2 93 95 95 Study Date: 09/21/17tudy Time: 945 ASSESSMENT History & Physical Mode of Arrival: Testing was performed at patient bedside Pulse: 74Resp: 18SPO2: 96 %on ra Pain Assessment Pain:None TESTING/THERAPEUTICS Medications ordered or required for procedure: N/A PT EDUCATION/INSTRUCTIONS Barriers to learning: No known barriers to learning. Learning need identified: Yes, Patient/Family/Guradian was informed of the ordered study by the physician Barriers to performing study or treatment: Patient has no known disability to perform the study or treatment. DISCHARGE The study was completed in accordance with the physician's order and patient released from the lab without adverse outcome. T Spot TB (09/21/2017 5:08 AM CDT) T-Spot TB Positive [facility] Neg Ctrl Spot Count 0 [facility] Panel A Spot 8 [facility] Panel B Spot 24 [facility] Pos Ctrl Spot Ct 0 [facility] Scan Result [facility] Specimen Blood - Arm, Left Narrative Performed At Performing Organization Address City/State/Zipcode Phone Number [facility] [address] [place] [address] LAB[address]ATORIES [address] Hepatitis A antibody, IgG (09/20/2017 5:46 AM CDT) Hep A IgG Reactive (A) Nonreactive [facility] Specimen Blood - Arm, Left Performing Organization Address [facility] Centercode Phone Number [address] [address] [phone] [place] Calcium, Ionized (09/20/2017 5:46 AM CDT)Only the most recent of3 resultswithin the time period is included. Calcium, Ion 1.10 (L) 1.12 - 1.27 mmol/L [facility] pH, Blood 7.42 [facility] Specimen Blood - Arm, Left Performing Organization Address [facility] Phone Number [address] [address] C[place] Evdbn-4-pbzzefhhivd (09/20/2017 5:46 AM CDT) A-1 Antitrypsin 196.20 90.00 - 200.00 mg/dL [facility] Specimen Blood - Arm, Left Performing Organization Address [facility] Phone Number [address] [address] [phone] [place] Alpha fetoprotein (AFP), tumor marker (09/20/2017 5:46 AM CDT)Only the most recent of2 resultswithin the time period is included. Alpha-Fetoprotein 5.2 <10.0 ng/mL [facility] Specimen Blood - Arm, Left Performing Organization Address [facility] Centercode Phone Number [address] [address] [phone] [place] Hepatitis B core antibody, total (09/20/2017 5:46 AM CDT) Hep B Core Total Ab REACTIVE (A) Nonreactive [facility] Specimen Blood - Arm, Left Performing Organization Address [facility]erc[facility] Phone Number [address] [address] C[place] Hepatitis B surface antibody (09/20/2017 5:46 AM CDT) Hep B S Ab 156.4 (H) <8.0 mIU/mL [facility] Specimen Blood - Arm, Left Performing Organization Address City/State/Zipcode Phone Number [address] [address] C[place] Prothrombin time/INR (09/20/2017 5:46 AM CDT)Only the most recent of3 resultswithin the time period is included. Protime 14.1 11.7 - 14.[address] [facility] INR 1.1 <=5.[address] [facility] Specimen Blood - Arm, Left Narrative Performed At [facility] RECOMMENDED COUMADIN/WARFARIN INR THERAPY RANGES STANDARD DOSE: 2.0 - 3.0 Includes: PROPHYLAXIS for venous thrombosis, systemic embolization; TREATMENT for venous thrombosis and/or pulmonary embolus. HIGH RISK: Target INR is 2.5-3.5 for patients with mechanical heart valves. Performing Organization Address [facility] Cent[facility]ode Phone Number [address] [address] C[place] Phosphorus (09/20/2017 5:46 AM CDT)Only the most recent of3 resultswithin the time period is included. Phosphorus 3.1 2.3 - 4.7 mg/dL [facility] Specimen Blood - Arm, Left Performing Organization Address City/[facility] Centerc[facility] Phone Number [address] [address] CENTER Hemoglobin A1c (09/20/2017 5:46 AM CDT)Only the most recent of3 resultswithin the time period is included. Hemoglobin A1C 5.3 4.3 - 6.1 % [facility] Specimen Blood - Arm, Left Performing Organization Address City/[facility]/Zipcode Phone Number [address] [address] [phone] CENTER Ferritin (09/20/2017 5:46 AM CDT) Ferritin 39 5 - 275 ng/mL [facility] Specimen Blood - Arm, Left Performing Organization Address City/[facility] Phone Number [address] [address] C[place] Carcinoembryonic Antigen (CEA) (09/20/2017 5:46 AM CDT) CEA, SERUM 4.1 0.0 - 5.0 ng/mL [facility] Specimen Blood - Arm, Left Performing Organization Address [facility] Phone Number [address] [address] [phone] CENTER Lipid panel (09/20/2017 5:46 AM CDT)Only the most recent of3 resultswithin the time period is included. Triglycerides 64 mg/dL [facility] Cholesterol 132 mg/dL [facility] HDL 29 mg/dL [facility] LDL Calculated 90 mg/dL [facility] Specimen Blood - Arm, Left Narrative Performed At [facility] Triglyceride Reference Range: Low Risk <150 [id number] High Risk 200-499 Very High Risk>=500 Cholesterol Reference Range: Low Risk <200 Ffwdfcpgcd014-947 High Risk>240 HDL Cholesterol Reference Range: Low Risk >=60 High Risk <40 LDL Cholesterol Reference Range: Optimal<100 Near Qvpjlmz422-249 Naxrhycyai551-410 Cvgs173-803 Very High >=190 Performing Organization Address [facility]/Zipcode Phone Number [address] [address] [phone] CENTER Iron, TIBC, % sat. (without ferritin) (09/20/2017 5:45 AM CDT) Iron 34 (L) 40 - 160 ug/dL [facility] TIBC 358 250 - 450 ug/dL [facility] Iron % Saturation 9 (L) 20 - 55 % [facility] Specimen Blood - Arm, Left Performing Organization Address City/State/Zipcode Phone Number [facility] [address] [place] [address] CENTER Carbohydrate antigen 19-9 (CA 19-9) (09/20/2017 5:45 AM CDT) CA 19-9 32 <34 U/mL [facility] [employer] Comment: This test was performed using the Siemens (Fareye) Chemiluminescent method. Values obtained from different assay methods cannot be used interchangeably. CA19-9 levels, regardless of value, should not be interpreted as absolute evidence of the presence or absence of disease. Specimen Blood - Arm, Left Narrative Performed At Performing Lab [facility] [employer] [address] [address] I Taylor LOVELACE, PhD, CARI Performing Organization Address City/[facility] Centercode Phone Number [place] [address] INCORPORATED [address] [facility] Ceruloplasmin (09/20/2017 5:45 AM CDT) Ceruloplasmin 34 18 - 36 mg/dL [facility] Comment: Adults:Males: 18-36 mg/dL Females: 18-53 mg/dL Pediatrics:Males (mg/dL)Females (mg/dL) 0-30 Days 8-25 3-28 31 Days-11 Month -43 1-3 [id number] 4-6 Esdgw63-5357-29 7-9 Vvfug74-8074-59 10-12 Psuii01-7349-43 13-15 [id number] 16-18 Cwqbx27-3207-12 The pediatric ranges are derived from the following criteria: Conor ROSENTHAL, Estelle GOMEZ, Aster J et al Pediatric reference ranges for Xjeh-6-Rwfhuguzlhmma and ceruloplasmin. Clin. Chem 1997; 43:S1999 Pediatric Reference Ranges, 2nd., SF Conoret al. editors. [employer], [place], [place] 1997. Specimen Blood - Arm, Left Narrative Performed At Performing Lab [facility] *[facility], [address] [place] [phone] Uziel Colunga MD, PhD Performing Organization Address City/State/Zipcode Phone Number [facility], [place] [address] INCORPORATED [address] [facility] Hepatitis C PCR, Quantitative (09/20/2017 5:45 AM CDT) HCV PCR, Quantitative 2,730,000 (H) <15 IU/mL [facility] Specimen Blood - Arm, Left Narrative Performed At This test uses a Real-Time Polymerase Chain [facility] Reaction (RT-PCR) methodology and was performed using [employer] Ampliprep/BHARGAVI TaqMan HCV test kit version 2.0 ([employer]). Reportable range for this assay is 15 - 100,000,000 IU per mL (1.18 - 8.00 Log IU/mL). Performing Organization Address City/State/Zipcode Phone Number [address] [address] CENTER Hepatitis B surface antigen (09/20/2017 5:45 AM CDT) hepatitis B Surface Ag NON-REACTIVE Nonreactive [facility] Specimen Blood - Arm, Left Performing Organization Address [facility]/Zipcode Phone Number [address] [address] [phone] [place] MR abdomen without & with IV contrast (09/18/2017 2:39 PM CDT) Narrative Performed At FINAL REPORT [facility] MRI of the abdomen dated September 18, 2017 Comment: Multiplanar T1 and T2-weighted images of the abdomen, postcontrast axial and coronal T1-weighted images of the abdomen were obtained. Liver is cirrhotic in appearance with irregular margins. A complex heterogeneously enhancing mass is seen in the segment 8 of the liver measuring approximately 5.7 x 8.5 cm with delayed washout. A 3.5 x 4.3 cm early enhancing mass is seen in the segment 3 of the liver with delayed washout. A 2.8 x 3.0 cm early enhancing mass is seen in the segment 5 of the liver with delayed washout. The lesions are compatible with the bibasilar carcinoma. A couple of early enhancing foci are seen in the segment 3 of the liver without delayed washout may represent vascular shunting. Spleen is normal in size. The splenic, superior mesenteric, and proximal portal veins are patent. Thrombosis is noted in the distal main and right portal vein. Gallbladder is contracted. No gallstone or biliary dilatation is seen. Pancreas and adrenals are unremarkable. Both kidneys are normal in size and functioning. No ascites is seen in the abdomen. The visualized small and large bowel are unremarkable. IMPRESSION: 1. Cirrhosis. 2. Multifocal early enhancing foci in the liver with delayed washout suggestive of multifocal hepatocellular carcinoma. 3. 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 Signed: James Barton MD Report Verified Date/Time:09/18/2017 16:31:43 Reading Location: [facility] C013Y CT Body Reading Room Procedure Note Interface, External Ris In - 09/18/2017 4:33 PM CDT FINAL REPORT MRI of the abdomen dated September 18, 2017 Comment: Multiplanar T1 and T2-weighted images of the abdomen, postcontrast axial and coronal T1-weighted images of the abdomen were obtained. Liver is cirrhotic in appearance with irregular margins. A complex heterogeneously enhancing mass is seen in the segment 8 of the liver measuring approximately 5.7 x 8.5 cm with delayed washout. A 3.5 x 4.3 cm early enhancing mass is seen in the segment 3 of the liver with delayed washout. A 2.8 x 3.0 cm early enhancing mass is seen in the segment 5 of the liver with delayed washout. The lesions are compatible with the bibasilar carcinoma. A couple of early enhancing foci are seen in the segment 3 of the liver without delayed washout may represent vascular shunting. Spleen is normal in size. The splenic, superior mesenteric, and proximal portal veins are patent. Thrombosis is noted in the distal main and right portal vein. Gallbladder is contracted. No gallstone or biliary dilatation is seen. Pancreas and adrenals are unremarkable. Both kidneys are normal in size and functioning. No ascites is seen in the abdomen. The visualized small and large bowel are unremarkable. IMPRESSION: 1. Cirrhosis. 2. Multifocal early enhancing foci in the liver with delayed washout suggestive of multifocal hepatocellular carcinoma. 3. 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 Signed: James Barton MD Report Verified Date/Time: 09/18/2017 16:31:43 Reading Location: [facility] C013Y CT Body Reading Room Performing Organization Address City/State/Zipcode Phone Number [facility] CT abdomen/pelvis with IV contrast (09/17/2017 6:18 PM CDT) Narrative Performed At FINAL REPORT [facility] TECHNIQUE: CT of the chest, abdomen, and pelvis WITH intravenous contrast and WITHOUT oral contrast. Dose modulation, iterative reconstruction, and/or weight-based adjustment of the mA/kV was utilized to reduce the radiation dose to as low as reasonably achievable. INDICATION: 61-year-old man with chest pain, weakness, abdominal pain, and bladder cancer. COMPARISON: None. FINDINGS: LINES/TUBES: None. LUNGS AND AIRWAYS: Central airways are patent. No consolidation. 3 mm nodule in the right upper lobe (axial lung window series image 10). Linear subsegmental atelectasis in the lingula. PLEURA: The pleural spaces are clear. HEART AND MEDIASTINUM: The visualized thyroid gland is normal. No significant mediastinal, hilar, or axillary lymphadenopathy. The heart and pericardium are within normal limits. Atherosclerotic calcifications in the thoracic aorta and coronary arteries. HEPATOBILIARY: Cirrhotic morphology of the liver with scattered areas of heterogeneous enhancement and hypodensity. Cluster of subcentimeter calcifications in segment V. Gallbladder is unremarkable. No biliary ductal dilatation. SPLEEN: The spleen is enlarged, measuring 14.4 cm in greatest dimension. PANCREAS: No focal masses or ductal dilatation. ADRENALS: No adrenal nodules. KIDNEYS/URETERS: No hydronephrosis or stones. 1.3 cm exophytic cyst in the right lower pole. 1.5 cm exophytic hypodensity in the left lower pole with density greater than simple fluid. PELVIC ORGANS/BLADDER: Partially calcified 3.8 x 4.3 x 2.3 cm mass in the left bladder wall. Mild perivesical fat stranding along the left bladder wall. Prostate and seminal vesicles are grossly unremarkable. PERITONEUM/RETROPERITONEUM: No free air or fluid. LYMPH NODES: Unspecific subcentimeter retroperitoneal and periportal lymph nodes. VESSELS: Soft tissue density expansile thrombus involving the right portal vein which extends into a portion of the main portal vein. Atherosclerotic vascular calcifications without aneurysm. GI TRACT: No distention or wall thickening. Normal appendix. BONES AND SOFT TISSUES: Posterior spine. Soft tissues are unremarkable. IMPRESSION: Partially calcified left bladder mass, consistent with reported bladder cancer. Cirrhosis with splenomegaly. Heterogeneous attenuation of the liver with expansile soft tissue density thrombus in the right and main portal vein, suspicious for multifocal/infiltrative hepatocellular carcinoma. Metastatic disease from bladder cancer is less likely. Indeterminate hypodense lesion in the left kidney. Differential considerations include debris-containing cyst and neoplasm. No acute abnormalities in the chest. 3 mm pulmonary nodule in the right upper lobe. RECOMMENDATION: Abdomen MRI with and without intravenous contrast (liver protocol) is recommended for further evaluation of the liver and left renal lesion. Signed: Cheyenne Duffy MD Report Verified Date/Time:09/17/2017 18:50:00 Reading Location: [facility] C013W Consult Reading Room Procedure Note Interface, External Ris In - 09/17/2017 6:52 PM CDT FINAL REPORT TECHNIQUE: CT of the chest, abdomen, and pelvis WITH intravenous contrast and WITHOUT oral contrast. Dose modulation, iterative reconstruction, and/or weight-based adjustment of the mA/kV was utilized to reduce the radiation dose to as low as reasonably achievable. INDICATION: 61-year-old man with chest pain, weakness, abdominal pain, and bladder cancer. COMPARISON: None. FINDINGS: LINES/TUBES: None. LUNGS AND AIRWAYS: Central airways are patent. No consolidation. 3 mm nodule in the right upper lobe (axial lung window series image 10). Linear subsegmental atelectasis in the lingula. PLEURA: The pleural spaces are clear. HEART AND MEDIASTINUM: The visualized thyroid gland is normal. No significant mediastinal, hilar, or axillary lymphadenopathy. The heart and pericardium are within normal limits. Atherosclerotic calcifications in the thoracic aorta and coronary arteries. HEPATOBILIARY: Cirrhotic morphology of the liver with scattered areas of heterogeneous enhancement and hypodensity. Cluster of subcentimeter calcifications in segment V. Gallbladder is unremarkable. No biliary ductal dilatation. SPLEEN: The spleen is enlarged, measuring 14.4 cm in greatest dimension. PANCREAS: No focal masses or ductal dilatation. ADRENALS: No adrenal nodules. KIDNEYS/URETERS: No hydronephrosis or stones. 1.3 cm exophytic cyst in the right lower pole. 1.5 cm exophytic hypodensity in the left lower pole with density greater than simple fluid. PELVIC ORGANS/BLADDER: Partially calcified 3.8 x 4.3 x 2.3 cm mass in the left bladder wall. Mild perivesical fat stranding along the left bladder wall. Prostate and seminal vesicles are grossly unremarkable. PERITONEUM/RETROPERITONEUM: No free air or fluid. LYMPH NODES: Unspecific subcentimeter retroperitoneal and periportal lymph nodes. VESSELS: Soft tissue density expansile thrombus involving the right portal vein which extends into a portion of the main portal vein. Atherosclerotic vascular calcifications without aneurysm. GI TRACT: No distention or wall thickening. Normal appendix. BONES AND SOFT TISSUES: Posterior spine. Soft tissues are unremarkable. IMPRESSION: Partially calcified left bladder mass, consistent with reported bladder cancer. Cirrhosis with splenomegaly. Heterogeneous attenuation of the liver with expansile soft tissue density thrombus in the right and main portal vein, suspicious for multifocal/infiltrative hepatocellular carcinoma. Metastatic disease from bladder cancer is less likely. Indeterminate hypodense lesion in the left kidney. Differential considerations include debris-containing cyst and neoplasm. No acute abnormalities in the chest. 3 mm pulmonary nodule in the right upper lobe. RECOMMENDATION: Abdomen MRI with and without intravenous contrast (liver protocol) is recommended for further evaluation of the liver and left renal lesion. Signed: Cheyenne Duffy MD Report Verified Date/Time: 09/17/2017 18:50:00 Reading Location: [facility] B1 C013W Consult Reading Room Performing Organization Address City/State/Zipcode Phone Number [facility] CT chest with IV contrast (09/17/2017 6:18 PM CDT) Narrative Performed At FINAL REPORT [facility] TECHNIQUE: CT of the chest, abdomen, and pelvis WITH intravenous contrast and WITHOUT oral contrast. Dose modulation, iterative reconstruction, and/or weight-based adjustment of the mA/kV was utilized to reduce the radiation dose to as low as reasonably achievable. INDICATION: 61-year-old man with chest pain, weakness, abdominal pain, and bladder cancer. COMPARISON: None. FINDINGS: LINES/TUBES: None. LUNGS AND AIRWAYS: Central airways are patent. No consolidation. 3 mm nodule in the right upper lobe (axial lung window series image 10). Linear subsegmental atelectasis in the lingula. PLEURA: The pleural spaces are clear. HEART AND MEDIASTINUM: The visualized thyroid gland is normal. No significant mediastinal, hilar, or axillary lymphadenopathy. The heart and pericardium are within normal limits. Atherosclerotic calcifications in the thoracic aorta and coronary arteries. HEPATOBILIARY: Cirrhotic morphology of the liver with scattered areas of heterogeneous enhancement and hypodensity. Cluster of subcentimeter calcifications in segment V. Gallbladder is unremarkable. No biliary ductal dilatation. SPLEEN: The spleen is enlarged, measuring 14.4 cm in greatest dimension. PANCREAS: No focal masses or ductal dilatation. ADRENALS: No adrenal nodules. KIDNEYS/URETERS: No hydronephrosis or stones. 1.3 cm exophytic cyst in the right lower pole. 1.5 cm exophytic hypodensity in the left lower pole with density greater than simple fluid. PELVIC ORGANS/BLADDER: Partially calcified 3.8 x 4.3 x 2.3 cm mass in the left bladder wall. Mild perivesical fat stranding along the left bladder wall. Prostate and seminal vesicles are grossly unremarkable. PERITONEUM/RETROPERITONEUM: No free air or fluid. LYMPH NODES: Unspecific subcentimeter retroperitoneal and periportal lymph nodes. VESSELS: Soft tissue density expansile thrombus involving the right portal vein which extends into a portion of the main portal vein. Atherosclerotic vascular calcifications without aneurysm. GI TRACT: No distention or wall thickening. Normal appendix. BONES AND SOFT TISSUES: Posterior spine. Soft tissues are unremarkable. IMPRESSION: Partially calcified left bladder mass, consistent with reported bladder cancer. Cirrhosis with splenomegaly. Heterogeneous attenuation of the liver with expansile soft tissue density thrombus in the right and main portal vein, suspicious for multifocal/infiltrative hepatocellular carcinoma. Metastatic disease from bladder cancer is less likely. Indeterminate hypodense lesion in the left kidney. Differential considerations include debris-containing cyst and neoplasm. No acute abnormalities in the chest. 3 mm pulmonary nodule in the right upper lobe. RECOMMENDATION: Abdomen MRI with and without intravenous contrast (liver protocol) is recommended for further evaluation of the liver and left renal lesion. Signed: Cheyenne Duffy MD Report Verified Date/Time:09/17/2017 18:50:00 Reading Location: [address] Consult Reading Room Procedure Note Interface, External Ris In - 09/17/2017 6:52 PM CDT FINAL REPORT TECHNIQUE: CT of the chest, abdomen, and pelvis WITH intravenous contrast and WITHOUT oral contrast. Dose modulation, iterative reconstruction, and/or weight-based adjustment of the mA/kV was utilized to reduce the radiation dose to as low as reasonably achievable. INDICATION: 61-year-old man with chest pain, weakness, abdominal pain, and bladder cancer. COMPARISON: None. FINDINGS: LINES/TUBES: None. LUNGS AND AIRWAYS: Central airways are patent. No consolidation. 3 mm nodule in the right upper lobe (axial lung window series image 10). Linear subsegmental atelectasis in the lingula. PLEURA: The pleural spaces are clear. HEART AND MEDIASTINUM: The visualized thyroid gland is normal. No significant mediastinal, hilar, or axillary lymphadenopathy. The heart and pericardium are within normal limits. Atherosclerotic calcifications in the thoracic aorta and coronary arteries. HEPATOBILIARY: Cirrhotic morphology of the liver with scattered areas of heterogeneous enhancement and hypodensity. Cluster of subcentimeter calcifications in segment V. Gallbladder is unremarkable. No biliary ductal dilatation. SPLEEN: The spleen is enlarged, measuring 14.4 cm in greatest dimension. PANCREAS: No focal masses or ductal dilatation. ADRENALS: No adrenal nodules. KIDNEYS/URETERS: No hydronephrosis or stones. 1.3 cm exophytic cyst in the right lower pole. 1.5 cm exophytic hypodensity in the left lower pole with density greater than simple fluid. PELVIC ORGANS/BLADDER: Partially calcified 3.8 x 4.3 x 2.3 cm mass in the left bladder wall. Mild perivesical fat stranding along the left bladder wall. Prostate and seminal vesicles are grossly unremarkable. PERITONEUM/RETROPERITONEUM: No free air or fluid. LYMPH NODES: Unspecific subcentimeter retroperitoneal and periportal lymph nodes. VESSELS: Soft tissue density expansile thrombus involving the right portal vein which extends into a portion of the main portal vein. Atherosclerotic vascular calcifications without aneurysm. GI TRACT: No distention or wall thickening. Normal appendix. BONES AND SOFT TISSUES: Posterior spine. Soft tissues are unremarkable. IMPRESSION: Partially calcified left bladder mass, consistent with reported bladder cancer. Cirrhosis with splenomegaly. Heterogeneous attenuation of the liver with expansile soft tissue density thrombus in the right and main portal vein, suspicious for multifocal/infiltrative hepatocellular carcinoma. Metastatic disease from bladder cancer is less likely. Indeterminate hypodense lesion in the left kidney. Differential considerations include debris-containing cyst and neoplasm. No acute abnormalities in the chest. 3 mm pulmonary nodule in the right upper lobe. RECOMMENDATION: Abdomen MRI with and without intravenous contrast (liver protocol) is recommended for further evaluation of the liver and left renal lesion. Signed: Cheyenne Duffy MD Report Verified Date/Time: 09/17/2017 18:50:00 Reading Location: [facility] C013W Consult Reading Room Performing Organization Address City/State/Zipcode Phone Number GE RIS after 01/24/2017 Insurance Payer Benefit Plan / Group Subscriber ID Type Phone Address MEDICAID - MEDICAID MEDICAID [employer] xxxxxxxxx Medicaid [facility] CARE Non-Contracted (Home) [place] [id number] Advance Directives For more information, please contact:[address] [phone] Code Status Date Activated Date Inactivated Comments Full Code 12/03/2017 4:32 PM 12/08/2017 3:27 PM This code status was determined by: Patient Full Code 09/17/2017 6:53 PM 09/25/2017 4:23 PM This code status was determined by: Patient
--- OUTSIDE RECORDS SUMMARY | 2018-01-25 15:53 | XMS REPORT ---
:1955 [facility] Address [address] [place] [address] Care Team Providers Name Role Phone ASHLEYNONI KASSY Unavailable Unavailable JUAN MIGUEL WASHINGTON Unavailable Unavailable Problems This patient has no known problems. Allergies, Adverse Reactions, Alerts This patient has no known allergies or adverse reactions. Medications This patient has no known medications. Results Test Description Test Time Test Comments Text Results Atomic Results Result Comments BLOOD CULTURE 2017-12-09 00:00:00 Test Item Value Reference Range Comments CULTURE (BEAKER) (test jyzc=3920) No growth in 5 days BLOOD [id number] 00:00:00 Test Item Value Reference Range Comments CULTURE (BEAKER) (test vapl=4097) No growth in 5 days HEMOGLOBIN AND [id number] 06:55:00 Test Item Value Reference Range Comments HEMOGLOBIN (BEAKER) (test zzty=538) 10.6 GM/DL 13.7-17.5 HEMATOCRIT (BEAKER) (test wquj=205) 35.6 % 40.1-51.0 HEMOGLOBIN AND [id number] 06:25:00 Test Item Value Reference Range Comments HEMOGLOBIN (BEAKER) (test tlkw=189) 10.3 GM/DL 13.7-17.5 HEMATOCRIT (BEAKER) (test frbl=669) 34.7 % 40.1-51.0 BASIC METABOLIC [id number] 07:39:00 Test Item Value Reference Range Comments SODIUM (BEAKER) (test 139 meq/L 136-145 zczu=539) POTASSIUM (BEAKER) (test 4.2 meq/L 3.5-5.1 hwjk=401) CHLORIDE (BEAKER) (test 108 meq/L 98-107 ldue=158) CO2 (BEAKER) (test 27 meq/L 22-29 tmnn=931) BLOOD UREA NITROGEN 7 mg/dL 7-21 (BEAKER) (test ackq=252) CREATININE (BEAKER) (test 0.70 mg/dL 0.57-1.25 cggr=365) GLUCOSE RANDOM (BEAKER) 89 mg/dL 70-105 (test djfa=772) CALCIUM (BEAKER) (test 8.7 mg/dL 8.4-10.2 ycsh=950) EGFR (BEAKER) (test 114 mL/min/1.73 sq m ESTIMATED GFR IS NOT fmhd=1502) ACCURATE CREATININE CLEARANCE IN PREDICTING GLOMERULAR FILTRATION RATE. ESTIMATED GFR IS NOT APPLICABLE FOR DIALYSIS PATIENTS. HEMOGLOBIN AND [id number] 07:07:00 Test Item Value Reference Range Comments HEMOGLOBIN (BEAKER) (test jrgf=979) 10.4 GM/DL 13.7-17.5 HEMATOCRIT (BEAKER) (test oons=477) 34.9 % 40.1-51.0 URINE [id number] 08:02:00 Test Item Value Reference Range Comments CULTURE (BEAKER) (test wrtj=4883) No growth HEPATIC FUNCTION [id number] 07:19:00 Test Item Value Reference Range Comments TOTAL PROTEIN (BEAKER) (test zkji=325) 6.1 gm/dL 6.0-8.3 ALBUMIN (BEAKER) (test lfbx=0634) 3.1 g/dL 3.5-5.0 BILIRUBIN TOTAL (BEAKER) (test xiqt=685) 0.4 mg/dL 0.2-1.2 BILIRUBIN DIRECT (BEAKER) (test uxlh=101) 0.2 mg/dL 0.1-0.5 ALKALINE PHOSPHATASE (BEAKER) (test ajze=069) 131 U/L 40-150 AST (SGOT) (BEAKER) (test qffy=387) 66 U/L 5-34 ALT (SGPT) (BEAKER) (test ljqf=239) 35 U/L 6-55 BASIC METABOLIC [id number] 06:46:00 Test Item Value Reference Range Comments SODIUM (BEAKER) (test 136 meq/L 136-145 dolm=860) POTASSIUM (BEAKER) (test 4.0 meq/L 3.5-5.1 tpeu=255) CHLORIDE (BEAKER) (test 106 meq/L 98-107 wxfh=127) CO2 (BEAKER) (test 25 meq/L 22-29 ssyf=993) BLOOD UREA NITROGEN 9 mg/dL 7-21 (BEAKER) (test xrvo=112) CREATININE (BEAKER) (test 0.70 mg/dL 0.57-1.25 mrmh=244) GLUCOSE RANDOM (BEAKER) 87 mg/dL 70-105 (test kofq=796) CALCIUM (BEAKER) (test 8.6 mg/dL 8.4-10.2 rzde=465) EGFR (BEAKER) (test 114 mL/min/1.73 sq m ESTIMATED GFR IS NOT twln=2655) ACCURATE CREATININE CLEARANCE IN PREDICTING GLOMERULAR FILTRATION RATE. ESTIMATED GFR IS NOT APPLICABLE FOR DIALYSIS PATIENTS. POCT-GLUCOSE [id number] 17:16:00 Test Item Value Reference Range Comments POC-GLUCOSE METER (BEAKER) 95 mg/dL 70-[address] [facility] [address] [place] [address] (test ltfd=1448) [facility] [address] BASIC METABOLIC [id number] 08:57:00 Test Item Value Reference Range Comments SODIUM (BEAKER) (test 137 meq/L 136-145 tjnf=109) POTASSIUM (BEAKER) (test 4.2 meq/L 3.5-5.1 jnmh=927) CHLORIDE (BEAKER) (test 107 meq/L 98-107 lnwe=400) CO2 (BEAKER) (test 27 meq/L 22-29 njwi=714) BLOOD UREA NITROGEN 12 mg/dL 7-21 (BEAKER) (test ntnl=545) CREATININE (BEAKER) (test 0.86 mg/dL 0.57-1.25 kukn=297) GLUCOSE RANDOM (BEAKER) 95 mg/dL 70-105 (test ykgy=371) CALCIUM (BEAKER) (test 8.6 mg/dL 8.4-10.2 aksg=509) EGFR (BEAKER) (test 90 mL/min/1.73 sq m ESTIMATED GFR IS NOT uwop=6209) ACCURATE CREATININE CLEARANCE IN PREDICTING GLOMERULAR FILTRATION RATE. ESTIMATED GFR IS NOT APPLICABLE FOR DIALYSIS PATIENTS. CBC W/PLT COUNT & AUTO [id number] 04:43:00 Test Item Value Reference Range Comments WHITE BLOOD CELL COUNT (BEAKER) (test eimn=904) 3.1 K/ L 3.5-10.5 RED BLOOD CELL COUNT (BEAKER) (test itlc=398) 4.36 M/ L 4.63-6.08 HEMOGLOBIN (BEAKER) (test mqmw=318) 10.4 GM/DL 13.7-17.5 HEMATOCRIT (BEAKER) (test vwpa=317) 35.1 % 40.1-51.0 MEAN CORPUSCULAR VOLUME (BEAKER) (test woet=505) 80.5 fL 79.0-92.2 MEAN CORPUSCULAR HEMOGLOBIN (BEAKER) (test 23.9 pg 25.7-32.2 hkub=417) MEAN CORPUSCULAR HEMOGLOBIN CONC (BEAKER) (test 29.6 GM/DL 32.3-36.5 wczl=855) RED CELL DISTRIBUTION WIDTH (BEAKER) (test 15.6 % 11.6-14.4 lgrp=766) PLATELET COUNT (BEAKER) (test ddri=254) 137 K/CU MM 150-450 MEAN PLATELET VOLUME (BEAKER) (test uvjo=252) 10.6 fL 9.4-12.4 NUCLEATED RED BLOOD CELLS (BEAKER) (test 0 /100 WBC 0-0 efrz=764) NEUTROPHILS RELATIVE PERCENT (BEAKER) (test 62 % hewm=639) LYMPHOCYTES RELATIVE PERCENT (BEAKER) (test 21 % jxey=898) MONOCYTES RELATIVE PERCENT (BEAKER) (test 13 % buaq=576) EOSINOPHILS RELATIVE PERCENT (BEAKER) (test 3 % kpax=073) BASOPHILS RELATIVE PERCENT (BEAKER) (test 0 % smkf=946) NEUTROPHILS ABSOLUTE COUNT (BEAKER) (test 1.92 K/ L 1.78-5.38 lsxs=398) LYMPHOCYTES ABSOLUTE COUNT (BEAKER) (test 0.64 K/ L 1.32-3.57 wpcp=865) MONOCYTES ABSOLUTE COUNT (BEAKER) (test 0.41 K/ L 0.30-0.82 npma=898) EOSINOPHILS ABSOLUTE COUNT (BEAKER) (test 0.09 K/ L 0.04-0.54 bxkh=224) BASOPHILS ABSOLUTE COUNT (BEAKER) (test 0.01 K/ L 0.01-0.08 misp=530) IMMATURE GRANULOCYTES-RELATIVE PERCENT (BEAKER) 0 % 0-1 (test opnx=0291) URINALYSIS W/ REFLEX URINE [id number] 18:33:00 Test Item Value Reference Range Comments COLOR (BEAKER) (test awvc=352) Brown CLARITY (BEAKER) (test jfve=510) Cloudy SPECIFIC GRAVITY UA (BEAKER) (test hvhl=670) 1.030 1.001-1.035 PH UA (BEAKER) (test kncm=899) 6.0 5.0-8.0 PROTEIN UA (BEAKER) (test ifng=203) 100 mg/dL Negative GLUCOSE UA (BEAKER) (test fbsd=576) Negative Negative KETONES UA (BEAKER) (test tivp=141) Negative Negative BILIRUBIN UA (BEAKER) (test bkcw=838) Positive Negative BLOOD UA (BEAKER) (test hint=051) Large Negative NITRITE UA (BEAKER) (test odao=632) Positive Negative LEUKOCYTE ESTERASE UA (BEAKER) (test lynx=304) Trace Negative UROBILINOGEN UA (BEAKER) (test hgfr=233) 4.0 mg/dL 0.2-1.0 RBC UA (BEAKER) (test vgmq=421) > /HPF WBC UA (BEAKER) (test yyea=750) 0 /HPF SOURCE(BEAKER) (test ljoj=1210) URINALYSIS [id number] 14:13:00 Test Item Value Reference Range Comments RBC UA (BEAKER) (test rkdp=821) 500 /HPF WBC UA (BEAKER) (test tbin=932) 10 /HPF URINALYSIS WITH MICROSCOPIC IF [id number] 14:12:00 Test Item Value Reference Range Comments COLOR (BEAKER) (test rgdi=343) Brown CLARITY (BEAKER) (test bxvg=150) Cloudy SPECIFIC GRAVITY UA (BEAKER) (test ixmx=464) 1.030 1.001-1.035 PH UA (BEAKER) (test itrz=748) 6.0 5.0-8.0 PROTEIN UA (BEAKER) (test fjku=957) 200 mg/dL Negative GLUCOSE UA (BEAKER) (test rqsi=607) Negative Negative KETONES UA (BEAKER) (test yxfl=819) Negative Negative BILIRUBIN UA (BEAKER) (test hbcj=212) Positive Negative BLOOD UA (BEAKER) (test lodz=839) Large Negative NITRITE UA (BEAKER) (test iocf=917) Positive Negative LEUKOCYTE ESTERASE UA (BEAKER) (test xafl=724) Trace Negative UROBILINOGEN UA (BEAKER) (test vloq=375) 6.0 mg/dL 0.2-1.0 SOURCE(BEAKER) (test jzeo=5456) [id number] 12:24:00 Test Item Value Reference Range Comments MAGNESIUM (BEAKER) (test vqcl=748) 1.8 mg/dL 1.6-2.6 COMPREHENSIVE METABOLIC [id number] 12:24:00 Test Item Value Reference Range Comments TOTAL PROTEIN (BEAKER) 6.7 gm/dL 6.0-8.3 (test huuc=487) ALBUMIN (BEAKER) (test 3.5 g/dL 3.5-5.0 mhuj=6922) ALKALINE PHOSPHATASE 141 U/L 40-150 (BEAKER) (test tlck=782) BILIRUBIN TOTAL (BEAKER) 0.4 mg/dL 0.2-1.2 (test xvtd=636) SODIUM (BEAKER) (test 137 meq/L 136-145 msnj=476) POTASSIUM (BEAKER) (test 3.6 meq/L 3.5-5.1 olre=811) CHLORIDE (BEAKER) (test 105 meq/L 98-107 mzpp=668) CO2 (BEAKER) (test 26 meq/L 22-29 smst=124) BLOOD UREA NITROGEN 10 mg/dL 7-21 (BEAKER) (test ndme=654) CREATININE (BEAKER) (test 0.78 mg/dL 0.57-1.25 hzlc=344) GLUCOSE RANDOM (BEAKER) 112 mg/dL 70-105 (test fhvc=328) CALCIUM (BEAKER) (test 9.2 mg/dL 8.4-10.2 ejmq=309) AST (SGOT) (BEAKER) (test 68 U/L 5-34 xzyp=354) ALT (SGPT) (BEAKER) (test 39 U/L 6-55 hxqk=129) EGFR (BEAKER) (test 101 mL/min/1.73 sq ESTIMATED GFR IS NOT kvxh=8849) m ACCURATE CREATININE CLEARANCE IN PREDICTING GLOMERULAR FILTRATION RATE. ESTIMATED GFR IS NOT APPLICABLE FOR DIALYSIS PATIENTS. [id number] 12:12:00 Test Item Value Reference Range Comments PROTIME (BEAKER) (test tfap=537) 14.5 seconds 11.7-14.7 INR (BEAKER) (test yytw=528) 1.1 <=5.9 PARTIAL THROMBOPLASTIN TIME (BEAKER) (test 28.2 seconds 22.5-36.0 jgah=234) RECOMMENDED COUMADIN/WARFARIN INR THERAPY RANGESSTANDARD DOSE: 2.0 - 3.0 Includes: PROPHYLAXIS forvenous thrombosis, systemic embolization; TREATMENT for venous thrombosis and/or pulmonary embolus.HIGH RISK: Target INR is 2.5-3.5 for patients with mechanical heart valves.CBC W/PLT COUNT & AUTO [id number] 12:04:00 Test Item Value Reference Range Comments WHITE BLOOD CELL COUNT (BEAKER) (test odzb=928) 2.8 K/ L 3.5-10.5 RED BLOOD CELL COUNT (BEAKER) (test hzmy=010) 4.53 M/ L 4.63-6.08 HEMOGLOBIN (BEAKER) (test occi=532) 11.0 GM/DL 13.7-17.5 HEMATOCRIT (BEAKER) (test xnqo=006) 36.1 % 40.1-51.0 MEAN CORPUSCULAR VOLUME (BEAKER) (test ynva=057) 79.7 fL 79.0-92.2 MEAN CORPUSCULAR HEMOGLOBIN (BEAKER) (test 24.3 pg 25.7-32.2 kkxh=244) MEAN CORPUSCULAR HEMOGLOBIN CONC (BEAKER) (test 30.5 GM/DL 32.3-36.5 jods=280) RED CELL DISTRIBUTION WIDTH (BEAKER) (test 15.5 % 11.6-14.4 lnbk=364) PLATELET COUNT (BEAKER) (test iyro=561) 118 K/CU MM 150-450 MEAN PLATELET VOLUME (BEAKER) (test wyiw=257) 9.7 fL 9.4-12.4 NUCLEATED RED BLOOD CELLS (BEAKER) (test 0 /100 WBC 0-0 dbyi=066) NEUTROPHILS RELATIVE PERCENT (BEAKER) (test 58 % kzgy=695) LYMPHOCYTES RELATIVE PERCENT (BEAKER) (test 25 % auyn=040) MONOCYTES RELATIVE PERCENT (BEAKER) (test 14 % srao=845) EOSINOPHILS RELATIVE PERCENT (BEAKER) (test 3 % xfwl=218) BASOPHILS RELATIVE PERCENT (BEAKER) (test 0 % gnik=337) NEUTROPHILS ABSOLUTE COUNT (BEAKER) (test 1.63 K/ L 1.78-5.38 fpdr=783) LYMPHOCYTES ABSOLUTE COUNT (BEAKER) (test 0.69 K/ L 1.32-3.57 vrhg=570) MONOCYTES ABSOLUTE COUNT (BEAKER) (test 0.40 K/ L 0.30-0.82 znkx=605) EOSINOPHILS ABSOLUTE COUNT (BEAKER) (test 0.07 K/ L 0.04-0.54 eqdz=108) BASOPHILS ABSOLUTE COUNT (BEAKER) (test 0.01 K/ L 0.01-0.08 efsl=769) IMMATURE GRANULOCYTES-RELATIVE PERCENT (BEAKER) 0 % 0-1 (test ohoh=9864) BLOOD [id number] 11:00:00 Test Item Value Reference Range Comments CULTURE (BEAKER) (test ncet=7869) No growth in 5 days TISSUE [id number] 12:00:00Surgical Pathology Report Case: [id number] Authorizing Provider: Chilango Aguilar MD Collected: 09/20/2017 1742 Ordering Location: [address] Received: 09/21/2017 0902 Service Pathologist: Lukas Arroyo MD Specimen: SoftTissue, Other, left lateral bladder wall tumor URINARY BLADDER, LEFT LATERAL WALL, TURBT: - UROTHELIAL CARCINOMA, 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 [id number], bladder tumorLeft lateral wall bladder tumorThe specimen is received in a formalin-filled container and labeled with the patient 's information and labeled "left lateral wall bladder tumor" and consists of 21 gm of multiple saunders-pink soft tissue and multiple saunders-yellow stone fragments measuring 3 x 1.5 x 1 cm in aggregate, A1 through A6. CG/pl PerformedTISSUE [id number] 09:50:00Surgical Pathology Report Case: [id number] Authorizing Provider: Edilma Ruelas Collected: 09/21/20172217 Ordering Location: [address] Received: 09/21/2017 2223 Service Pathologist: Earl Anand MD Specimen: Biopsy, Liver, Bx LIVER, ULTRASOUND-GUIDED BIOPSIES OF MASS- HEPATOCELLULAR CARCINOMA, MODERATELY DIFFERENTIATED Signing Pathologist Direct Phone Line: [phone] signed by Earl Anand MD on 09/25/2017 at 9:50 [id number], [id number], [id number], 00665Luwst cirrhosis and liver mass, hepatitis C and urinary bladder cancerUltrasound-guided biopsy of left hepatic massReceived in formalin labeled with patient's name and MRN aremultiple saunders white tissue cores ranging from 0.2 to 0.6 cm. Entirely submitted in A1.Section shows amoderately differentiated hepatocellular carcinoma disposed in thickened trabecular architecture (reticulin stain). The background liver is cirrhotic.Immunostain for CD34 shows aberrant staining in thesinusoidal endothelial cells. Immunostain for CHU 3 is negative.The following special studies were performed on this case and the interpretation is incorporated in the diagnostic report above:The immunohistochemistry test was developed and its performance characteristics determined by [facility], Pathology Laboratory. It has not been cleared or approved by the U.S. Food and Drug Administration. The FDA has determined that such clearance or approval is not necessary. The test is used for clinical purposes. It should not be regarded as investigational or for research. This laboratory is certified under the Clinical Laboratory Improvement Amendments of 1988 (CLIA-88 ) as qualified to perform high complexity clinical laboratory testing.[id number] 09:17:00 Test Item Value Reference Range Comments PROCALCITONIN (BEAKER) (test pdgo=4986) 0.10 ng/mL <0.05 SEPSIS RISK (ng/mL)Low: 0.05-0.50Intermediate: 0.51-2.00High: & gt;=2.01C-REACTIVE [id number] 08:00:00 Test Item Value Reference Range Comments C-REACTIVE PROTEIN (BEAKER) (test sjhj=008) 6.73 mg/dL 0.00-0.50 URINALYSIS W/ REFLEX URINE [id number] 21:59:00 Test Item Value Reference Range Comments COLOR (BEAKER) (test minw=968) Yellow CLARITY (BEAKER) (test zjyj=102) Clear SPECIFIC GRAVITY UA (BEAKER) (test eogc=358) 1.010 1.001-1.035 PH UA (BEAKER) (test nkwm=564) 5.5 5.0-8.0 PROTEIN UA (BEAKER) (test evbp=961) 20 mg/dL Negative GLUCOSE UA (BEAKER) (test gvuf=443) Negative Negative KETONES UA (BEAKER) (test tmcz=095) Negative Negative BILIRUBIN UA (BEAKER) (test toka=646) Negative Negative BLOOD UA (BEAKER) (test ongn=591) Large Negative NITRITE UA (BEAKER) (test idqu=864) Negative Negative LEUKOCYTE ESTERASE UA (BEAKER) (test xdpf=429) Moderate Negative UROBILINOGEN UA (BEAKER) (test xidi=868) 0.2 mg/dL 0.2-1.0 RBC UA (BEAKER) (test grbg=878) 44 /HPF WBC UA (BEAKER) (test jaas=211) 10 /HPF BACTERIA (BEAKER) (test jhwr=084) Rare MUCUS (BEAKER) (test yicl=1598) Rare SOURCE(BEAKER) (test rsnq=6302) RAD, CHEST, 1 VIEW, NON [id number] 12:06:00Reason for exam:->sob, tb spot (+) (neg CT on 09/17), pulm edema?Should this be performed at the bedside?-& gt;YesFINAL REPORT Two frontal chest images compared to [...] short-term chest x-ray follow-up. Signed: Glory Lamas Verified Date/Time: 09/24/2017 12:06:36 Reading Location: [facility] Radiology Reading Room Electronically signed by: GLORY LAMAS M.D. on 11/2017 12:06 PMBASI METABOLIC [id number] 07:09:00 Test Item Value Reference Range Comments SODIUM (BEAKER) (test 136 meq/L 136-145 dqlf=560) POTASSIUM (BEAKER) (test 3.9 meq/L 3.5-5.1 kdry=253) CHLORIDE (BEAKER) (test 107 meq/L 98-107 vczb=190) CO2 (BEAKER) (test 21 meq/L 22-29 wyep=891) BLOOD UREA NITROGEN 7 mg/dL 7-21 (BEAKER) (test wawr=536) CREATININE (BEAKER) (test 0.78 mg/dL 0.57-1.25 pnmo=541) GLUCOSE RANDOM (BEAKER) 104 mg/dL 70-105 (test lzgd=786) CALCIUM (BEAKER) (test 8.9 mg/dL 8.4-10.2 wysf=415) EGFR (BEAKER) (test 101 mL/min/1.73 sq m ESTIMATED GFR IS NOT oyqj=5909) ACCURATE CREATININE CLEARANCE IN PREDICTING GLOMERULAR FILTRATION RATE. ESTIMATED GFR IS NOT APPLICABLE FOR DIALYSIS PATIENTS. CBC (HEMOGRAM ONLY)2017-09-24 06:44:00 Test Item Value Reference Range Comments WHITE BLOOD CELL COUNT (BEAKER) (test lfdz=510) 4.6 K/ L 3.5-10.5 RED BLOOD CELL COUNT (BEAKER) (test xdho=924) 3.99 M/ L 4.63-6.08 HEMOGLOBIN (BEAKER) (test olcx=676) 11.1 GM/DL 13.7-17.5 HEMATOCRIT (BEAKER) (test dhjz=467) 34.9 % 40.1-51.0 MEAN CORPUSCULAR VOLUME (BEAKER) (test zxxy=327) 87.5 fL 79.0-92.2 MEAN CORPUSCULAR HEMOGLOBIN (BEAKER) (test 27.8 pg 25.7-32.2 vqav=861) MEAN CORPUSCULAR HEMOGLOBIN CONC (BEAKER) (test 31.8 GM/DL 32.3-36.5 axol=489) RED CELL DISTRIBUTION WIDTH (BEAKER) (test 13.4 % 11.6-14.4 cnpj=673) PLATELET COUNT (BEAKER) (test komn=254) 136 K/CU MM 150-450 MEAN PLATELET VOLUME (BEAKER) (test jboa=952) 10.1 fL 9.4-12.4 NUCLEATED RED BLOOD CELLS (BEAKER) (test 0 /100 WBC 0-0 pbba=849) BASIC METABOLIC [id number] 06:05:00 Test Item Value Reference Range Comments SODIUM (BEAKER) (test 136 meq/L 136-145 ckaz=141) POTASSIUM (BEAKER) (test 3.9 meq/L 3.5-5.1 zrng=547) CHLORIDE (BEAKER) (test 106 meq/L 98-107 wnjm=546) CO2 (BEAKER) (test 22 meq/L 22-29 buiy=960) BLOOD UREA NITROGEN 10 mg/dL 7-21 (BEAKER) (test nrsr=675) CREATININE (BEAKER) (test 0.85 mg/dL 0.57-1.25 vfkf=009) GLUCOSE RANDOM (BEAKER) 113 mg/dL 70-105 (test jolm=091) CALCIUM (BEAKER) (test 8.8 mg/dL 8.4-10.2 zicc=998) EGFR (BEAKER) (test 92 mL/min/1.73 sq m ESTIMATED GFR IS NOT pevl=0598) ACCURATE CREATININE CLEARANCE IN PREDICTING GLOMERULAR FILTRATION RATE. ESTIMATED GFR IS NOT APPLICABLE FOR DIALYSIS PATIENTS. CBC (HEMOGRAM ONLY)2017-09-23 05:45:00 Test Item Value Reference Range Comments WHITE BLOOD CELL COUNT (BEAKER) (test aetn=209) 4.8 K/ L 3.5-10.5 RED BLOOD CELL COUNT (BEAKER) (test cfcy=731) 4.05 M/ L 4.63-6.08 HEMOGLOBIN (BEAKER) (test abrk=779) 11.1 GM/DL 13.7-17.5 HEMATOCRIT (BEAKER) (test ffip=170) 35.8 % 40.1-51.0 MEAN CORPUSCULAR VOLUME (BEAKER) (test vakf=317) 88.4 fL 79.0-92.2 MEAN CORPUSCULAR HEMOGLOBIN (BEAKER) (test 27.4 pg 25.7-32.2 vayo=777) MEAN CORPUSCULAR HEMOGLOBIN CONC (BEAKER) (test 31.0 GM/DL 32.3-36.5 gggn=350) RED CELL DISTRIBUTION WIDTH (BEAKER) (test 13.5 % 11.6-14.4 hlrl=783) PLATELET COUNT (BEAKER) (test pnlj=839) 158 K/CU MM 150-450 MEAN PLATELET VOLUME (BEAKER) (test aueu=904) 9.9 fL 9.4-12.4 NUCLEATED RED BLOOD CELLS (BEAKER) (test 0 /100 WBC 0-0 zntf=474) BASIC METABOLIC [id number] 07:22:00 Test Item Value Reference Range Comments SODIUM (BEAKER) (test 139 meq/L 136-145 qcfz=538) POTASSIUM (BEAKER) (test 4.1 meq/L 3.5-5.1 goaz=621) CHLORIDE (BEAKER) (test 106 meq/L 98-107 gopy=589) CO2 (BEAKER) (test 24 meq/L 22-29 bnha=021) BLOOD UREA NITROGEN 15 mg/dL 7-21 (BEAKER) (test cdjd=160) CREATININE (BEAKER) (test 1.02 mg/dL 0.57-1.25 tvmg=202) GLUCOSE RANDOM (BEAKER) 116 mg/dL 70-105 (test dfai=608) CALCIUM (BEAKER) (test 9.0 mg/dL 8.4-10.2 nxgc=414) EGFR (BEAKER) (test 74 mL/min/1.73 sq m ESTIMATED GFR IS NOT cpni=4457) ACCURATE CREATININE CLEARANCE IN PREDICTING GLOMERULAR FILTRATION RATE. ESTIMATED GFR IS NOT APPLICABLE FOR DIALYSIS PATIENTS. CBC (HEMOGRAM ONLY)2017-09-22 06:38:00 Test Item Value Reference Range Comments WHITE BLOOD CELL COUNT (BEAKER) (test slwo=644) 5.1 K/ L 3.5-10.5 RED BLOOD CELL COUNT (BEAKER) (test bexc=267) 4.22 M/ L 4.63-6.08 HEMOGLOBIN (BEAKER) (test wtgh=425) 11.7 GM/DL 13.7-17.5 HEMATOCRIT (BEAKER) (test eyfd=752) 37.9 % 40.1-51.0 MEAN CORPUSCULAR VOLUME (BEAKER) (test iuzz=190) 89.8 fL 79.0-92.2 MEAN CORPUSCULAR HEMOGLOBIN (BEAKER) (test 27.7 pg 25.7-32.2 flhk=053) MEAN CORPUSCULAR HEMOGLOBIN CONC (BEAKER) (test 30.9 GM/DL 32.3-36.5 sryc=402) RED CELL DISTRIBUTION WIDTH (BEAKER) (test 14.0 % 11.6-14.4 ozut=140) PLATELET COUNT (BEAKER) (test nhnb=941) 151 K/CU MM 150-450 MEAN PLATELET VOLUME (BEAKER) (test zxtm=691) 10.0 fL 9.4-12.4 NUCLEATED RED BLOOD CELLS (BEAKER) (test 0 /100 WBC 0-0 keuo=331) U/S, BIOPSY, [id number] 17:50:00Reason for exam:->liver biopsy for liver nodule seen on MRIFINAL REPORT Ultrasound guided liver biopsy dated 09/21/2017 Procedure: Core liver biopsy. Preprocedure diagnosis : Liver mass Post procedure diagnosis: Liver mass Radiologist performing procedure: James Barton MD Name of Transcribing Machine Mechanic: None Sedation: Moderate sedation was administered. 2 mg of Versed and 100 mcg fentanyl IV was used for moderate sedation monitored under my direction. Total intraservice time of the sedation was 30 minutes. The patient's vital signs were monitored throughout the procedure and recorded in the patient's medical record by the nurse. Anesthesia : 1% Xylocaine mixed with sodium bicarbonate local anesthesia. Technique/ specimen removed: After obtained informed consent, ultrasound guided core biopsy of the liver was performed under usual sterile technique.Using an 18 gauge core biopsy needle, puncture was made in the mid upper abdomen with real time ultrasound guidance. Two passes were obtained from left hepatic lobe mass. Patient tolerated procedure well. Complication: None Estimated Blood Loss: None Graft/implants: None Impression: Successful ultrasound-guided core biopsy of the left hepatic lobe mass. Signed: James Bartonort Verified Date/Time: 17:50:41 Reading Location: [address] Ultrasound Reading Room HEPATITIS C PCR, [id number] 18:12:00 Test Item Value Reference Range Comments HCV NUMERIC RESULT (BEAKER) (test eemw=8370) [id number] IU/mL <15 This test uses a Real-Time Polymerase Chain Reaction (RT-PCR) methodology and was performed using BH[employer] Ampliprep/BHARGAVI TaqMan HCV test kit version 2.0 ( [employer]).Reportable range for this assay is 15 - 100,000, 000 IU per mL (1.18 - 8.00 Log IU/mL).[id number] 13:16:00 Test Item Value Reference Range Comments ALPHA-1 ANTITRYPSIN (BEAKER) (test dhjn=015) 196.20 mg/dL 90.00-200.00 HEPATITIS B CORE ANTIBODY, [id number] 12:24:00 Test Item Value Reference Range Comments HEPATITIS B CORE TOTAL ANTIBODY (BEAKER) (test Reactive Nonreactive miko=892) HEPATIC FUNCTION [id number] 10:04:00 Test Item Value Reference Range Comments TOTAL PROTEIN (BEAKER) (test jmeo=650) 6.4 gm/dL 6.0-8.3 ALBUMIN (BEAKER) (test hojt=9379) 3.4 g/dL 3.5-5.0 BILIRUBIN TOTAL (BEAKER) (test wcaj=706) 0.4 mg/dL 0.2-1.2 BILIRUBIN DIRECT (BEAKER) (test gkmn=458) 0.2 mg/dL 0.1-0.5 ALKALINE PHOSPHATASE (BEAKER) (test gckq=718) 97 U/L 40-150 AST (SGOT) (BEAKER) (test xfio=574) 65 U/L 5-34 ALT (SGPT) (BEAKER) (test wlpz=967) 45 U/L 6-55 COMPREHENSIVE METABOLIC [id number] 10:04:00 Test Item Value Reference Range Comments TOTAL PROTEIN (BEAKER) 6.4 gm/dL 6.0-8.3 (test casd=564) ALBUMIN (BEAKER) (test 3.4 g/dL 3.5-5.0 nrma=9252) ALKALINE PHOSPHATASE 97 U/L 40-150 (BEAKER) (test cmey=329) BILIRUBIN TOTAL (BEAKER) 0.4 mg/dL 0.2-1.2 (test tdfs=047) SODIUM (BEAKER) (test 137 meq/L 136-145 tlea=612) POTASSIUM (BEAKER) (test 4.5 meq/L 3.5-5.1 usva=138) CHLORIDE (BEAKER) (test 106 meq/L 98-107 lenc=665) CO2 (BEAKER) (test 23 meq/L 22-29 fyav=216) BLOOD UREA NITROGEN 10 mg/dL 7-21 (BEAKER) (test stbu=691) CREATININE (BEAKER) (test 0.81 mg/dL 0.57-1.25 rnla=637) GLUCOSE RANDOM (BEAKER) 86 mg/dL 70-105 (test wfco=246) CALCIUM (BEAKER) (test 8.7 mg/dL 8.4-10.2 yaaw=456) AST (SGOT) (BEAKER) (test 65 U/L 5-34 kquj=662) ALT (SGPT) (BEAKER) (test 45 U/L 6-55 rdfm=409) EGFR (BEAKER) (test 97 mL/min/1.73 sq m ESTIMATED GFR IS NOT phsc=8411) ACCURATE CREATININE CLEARANCE IN PREDICTING GLOMERULAR FILTRATION RATE. ESTIMATED GFR IS NOT APPLICABLE FOR DIALYSIS PATIENTS. CARCINOEMBRYONIC ANTIGEN (CEA)2017-09-20 10:03:00 Test Item Value Reference Range Comments CARCINOEMBRYONIC ANTIGEN (BEAKER) (test btrd=353) 4.1 ng/mL 0.0-5.0 HEMOGLOBIN [id number] 10:01:00 Test Item Value Reference Range Comments HEMOGLOBIN A1C (BEAKER) (test cbcs=968) 5.3 % 4.3-6.1 HEPATITIS A ANTIBODY, [id number] 08:19:00 Test Item Value Reference Range Comments HEPATITIS A IGG ANTIBODY (BEAKER) (test vfap=1403) Reactive Nonreactive HEPATITIS B SURFACE [id number] 07:55:00 Test Item Value Reference Range Comments HEPATITIS B SURFACE ANTIBODY (BEAKER) (test 156.4 mIU/mL <8.0 zpqi=938) ALPHA FETOPROTEIN (AFP), TUMOR [id number] 07:55:00 Test Item Value Reference Range Comments ALPHA-FETOPROTEIN (BEAKER) (test mgzg=9702) 5.2 ng/mL <10.0 HEPATITIS B SURFACE [id number] 07:50:00 Test Item Value Reference Range Comments HEPATITIS B SURFACE ANTIGEN (2) (BEAKER) (test Nonreactive Nonreactive ofvy=5864) [id number] 07:41:00 Test Item Value Reference Range Comments FERRITIN (BEAKER) (test hpig=617) 39 ng/mL 5-275 [id number] 07:34:00 Test Item Value Reference Range Comments PHOSPHORUS (BEAKER) (test ljan=237) 3.1 mg/dL 2.3-4.7 [id number] 07:34:00 Test Item Value Reference Range Comments MAGNESIUM (BEAKER) (test slzw=765) 2.0 mg/dL 1.6-2.6 LIPID [id number] 07:34:00 Test Item Value Reference Range Comments TRIGLYCERIDES (BEAKER) (test llzt=200) 64 mg/dL CHOLESTEROL (BEAKER) (test ymwl=592) 132 mg/dL HDL CHOLESTEROL (BEAKER) (test cfhy=695) 29 mg/dL LDL CHOLESTEROL CALCULATED (BEAKER) (test 90 mg/dL kwlh=623) Triglyceride Reference Range: Low Risk <150 Borderline 150- 199 High Risk 200-499 Very High Risk >=500Cholesterol Reference Range: Low Risk <200 Borderline 200-239 High Risk > 240HDL Cholesterol Reference Range: Low Risk >=60 High Risk <40LDL Cholesterol Reference Range: Optimal <100 Near Optimal 100-129 Borderline 130-159 High 160-189 Very High >=190IRON, TIBC, % SAT. (WITHOUT FERRITIN)2017-09-20 07:34:00 Test Item Value Reference Range Comments IRON (BEAKER) (test ntkg=200) 34 ug/dL 40-160 TOTAL IRON BINDING CAPACITY (BEAKER) (test 358 ug/dL 250-450 hksg=494) IRON % SATURATION (2) (BEAKER) (test dsul=8009) 9 % 20-55 CALCIUM, [id number] 06:56:00 Test Item Value Reference Range Comments CALCIUM IONIZED (BEAKER) (test xhiu=102) 1.10 mmol/L 1.12-1.27 PH, BLOOD (BEAKER) (test bpxw=4457) 7.42 PROTHROMBIN [id number] 06:30:00 Test Item Value Reference Range Comments PROTIME (BEAKER) (test cqnp=236) 14.1 seconds 11.7-14.7 INR (BEAKER) (test yccd=286) 1.1 <=5.9 RECOMMENDED COUMADIN/WARFARIN INR THERAPY RANGESSTANDARD DOSE: 2.0 - 3.0 Includes: PROPHYLAXIS forvenous thrombosis, systemic embolization; TREATMENT for venous thrombosis and/or pulmonary embolus.HIGH RISK: Target INR is 2.5-3.5 for patients with mechanical heart valves.CBC (HEMOGRAM ONLY)2017-09-20 06:20:00 Test Item Value Reference Range Comments WHITE BLOOD CELL COUNT (BEAKER) (test pyfu=942) 3.9 K/ L 3.5-10.5 RED BLOOD CELL COUNT (BEAKER) (test wpfg=142) 4.18 M/ L 4.63-6.08 HEMOGLOBIN (BEAKER) (test ostr=347) 11.6 GM/DL 13.7-17.5 HEMATOCRIT (BEAKER) (test wyrl=704) 36.9 % 40.1-51.0 MEAN CORPUSCULAR VOLUME (BEAKER) (test dwdh=111) 88.3 fL 79.0-92.2 MEAN CORPUSCULAR HEMOGLOBIN (BEAKER) (test 27.8 pg 25.7-32.2 qcfw=610) MEAN CORPUSCULAR HEMOGLOBIN CONC (BEAKER) (test 31.4 GM/DL 32.3-36.5 uebx=132) RED CELL DISTRIBUTION WIDTH (BEAKER) (test 13.7 % 11.6-14.4 tcbm=303) PLATELET COUNT (BEAKER) (test kzjb=504) 143 K/CU MM 150-450 MEAN PLATELET VOLUME (BEAKER) (test vfcp=474) 9.8 fL 9.4-12.4 NUCLEATED RED BLOOD CELLS (BEAKER) (test 0 /100 WBC 0-0 uhef=000) ALPHA FETOPROTEIN (AFP), TUMOR [id number] 15:24:00 Test Item Value Reference Range Comments ALPHA-FETOPROTEIN (BEAKER) (test kqtq=2281) 5.2 ng/mL <10.0 HEMOGLOBIN [id number] 14:41:00 Test Item Value Reference Range Comments HEMOGLOBIN A1C (BEAKER) (test qzjl=834) 5.2 % 4.3-6.1 [id number] 07:41:00 Test Item Value Reference Range Comments PHOSPHORUS (BEAKER) (test furt=632) 2.9 mg/dL 2.3-4.7 [id number] 07:41:00 Test Item Value Reference Range Comments MAGNESIUM (BEAKER) (test jqyq=028) 1.9 mg/dL 1.6-2.6 LIPID [id number] 07:41:00 Test Item Value Reference Range Comments TRIGLYCERIDES (BEAKER) (test gzeb=090) 74 mg/dL CHOLESTEROL (BEAKER) (test dfsh=949) 128 mg/dL HDL CHOLESTEROL (BEAKER) (test tuck=374) 26 mg/dL LDL CHOLESTEROL CALCULATED (BEAKER) (test 87 mg/dL hozv=144) Triglyceride Reference Range: Low Risk <150 Borderline 150- 199 High Risk 200-499 Very High Risk >=500Cholesterol Reference Range: Low Risk <200 Borderline 200-239 High Risk > 240HDL Cholesterol Reference Range: Low Risk >=60 High Risk <40LDL Cholesterol Reference Range: Optimal <100 Near Optimal 100-129 Borderline 130-159 High 160-189 Very High >=190HEPATIC FUNCTION [id number] 07:41:00 Test Item Value Reference Range Comments TOTAL PROTEIN (BEAKER) (test mwgt=514) 6.4 gm/dL 6.0-8.3 ALBUMIN (BEAKER) (test ogqc=5872) 3.4 g/dL 3.5-5.0 BILIRUBIN TOTAL (BEAKER) (test yboz=413) 0.5 mg/dL 0.2-1.2 BILIRUBIN DIRECT (BEAKER) (test wvqe=739) 0.2 mg/dL 0.1-0.5 ALKALINE PHOSPHATASE (BEAKER) (test ymik=204) 97 U/L 40-150 AST (SGOT) (BEAKER) (test xvvx=927) 65 U/L 5-34 ALT (SGPT) (BEAKER) (test jqhj=479) 48 U/L 6-55 COMPREHENSIVE METABOLIC [id number] 07:41:00 Test Item Value Reference Range Comments TOTAL PROTEIN (BEAKER) 6.4 gm/dL 6.0-8.3 (test tuya=379) ALBUMIN (BEAKER) (test 3.4 g/dL 3.5-5.0 wfes=2980) ALKALINE PHOSPHATASE 97 U/L 40-150 (BEAKER) (test kizd=795) BILIRUBIN TOTAL (BEAKER) 0.5 mg/dL 0.2-1.2 (test xpkv=486) SODIUM (BEAKER) (test 136 meq/L 136-145 ypmd=107) POTASSIUM (BEAKER) (test 4.1 meq/L 3.5-5.1 xwih=542) CHLORIDE (BEAKER) (test 106 meq/L 98-107 xcfo=166) CO2 (BEAKER) (test 23 meq/L 22-29 mapn=810) BLOOD UREA NITROGEN 11 mg/dL 7-21 (BEAKER) (test utys=175) CREATININE (BEAKER) (test 0.85 mg/dL 0.57-1.25 adwr=789) GLUCOSE RANDOM (BEAKER) 96 mg/dL 70-105 (test uhyi=851) CALCIUM (BEAKER) (test 8.8 mg/dL 8.4-10.2 zfyd=142) AST (SGOT) (BEAKER) (test 65 U/L 5-34 jwsp=067) ALT (SGPT) (BEAKER) (test 48 U/L 6-55 tpij=407) EGFR (BEAKER) (test 92 mL/min/1.73 sq m ESTIMATED GFR IS NOT hgpz=6783) ACCURATE CREATININE CLEARANCE IN PREDICTING GLOMERULAR FILTRATION RATE. ESTIMATED GFR IS NOT APPLICABLE FOR DIALYSIS PATIENTS. CALCIUM, [id number] 07:13:00 Test Item Value Reference Range Comments CALCIUM IONIZED (BEAKER) (test tcji=471) 1.03 mmol/L 1.12-1.27 PH, BLOOD (BEAKER) (test tocr=9814) 7.44 PROTHROMBIN TIME/[id number] 06:53:00 Test Item Value Reference Range Comments PROTIME (BEAKER) (test eerm=658) 14.8 seconds 11.7-14.7 INR (BEAKER) (test mhhk=624) 1.2 <=5.9 RECOMMENDED COUMADIN/WARFARIN INR THERAPY RANGESSTANDARD DOSE: 2.0 - 3.0 Includes: PROPHYLAXIS forvenous thrombosis, systemic embolization; TREATMENT for venous thrombosis and/or pulmonary embolus.HIGH RISK: Target INR is 2.5-3.5 for patients with mechanical heart valves.CBC (HEMOGRAM ONLY)2017-09-19 06:44:00 Test Item Value Reference Range Comments WHITE BLOOD CELL COUNT (BEAKER) (test lurz=489) 4.1 K/ L 3.5-10.5 RED BLOOD CELL COUNT (BEAKER) (test nlkm=448) 4.12 M/ L 4.63-6.08 HEMOGLOBIN (BEAKER) (test nbim=088) 11.4 GM/DL 13.7-17.5 HEMATOCRIT (BEAKER) (test jntt=445) 36.4 % 40.1-51.0 MEAN CORPUSCULAR VOLUME (BEAKER) (test nqus=796) 88.3 fL 79.0-92.2 MEAN CORPUSCULAR HEMOGLOBIN (BEAKER) (test 27.7 pg 25.7-32.2 snru=050) MEAN CORPUSCULAR HEMOGLOBIN CONC (BEAKER) (test 31.3 GM/DL 32.3-36.5 pqdd=071) RED CELL DISTRIBUTION WIDTH (BEAKER) (test 13.6 % 11.6-14.4 hnqn=160) PLATELET COUNT (BEAKER) (test xxru=169) 126 K/CU MM 150-450 MEAN PLATELET VOLUME (BEAKER) (test nigj=778) 9.6 fL 9.4-12.4 NUCLEATED RED BLOOD CELLS (BEAKER) (test 0 /100 WBC 0-0 aggl=037) MR, ABDOMEN, [id number] 16:31:00FINAL REPORT MRI of the abdomen dated September 18, 2017 Comment: Multiplanar T1 and T2-weighted images of the abdomen, postcontrast axial and coronal T1-weighted images of the abdomenwere obtained. Liver is cirrhotic in appearance with [...] visualized small and large bowel are unremarkable. IMPRESSION:1. Cirrhosis.2. Multifocal early enhancing foci in the liver with delayed washout suggestive of multifocal hepatocellular carcinoma.3. 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 Signed: James Barton MDReport Verified Date/Time: 09/18/2017 16:31:43 Reading Location: [facility] B1 C013Y CT Body ReadingRoom 04: 31 PMHEMOGLOBIN [id number] 15:13:00 Test Item Value Reference Range Comments HEMOGLOBIN A1C (BEAKER) (test sbqk=362) 5.2 % 4.3-6.1 CALCIUM, [id number] 06:38:00 Test Item Value Reference Range Comments CALCIUM IONIZED (BEAKER) (test lups=297) 1.12 mmol/L 1.12-1.27 PH, BLOOD (BEAKER) (test jeag=5000) 7.38 PROTHROMBIN [id number] 04:36:00 Test Item Value Reference Range Comments PROTIME (BEAKER) (test wbuc=005) 14.5 seconds 11.7-14.7 INR (BEAKER) (test zdxo=133) 1.1 <=5.9 RECOMMENDED COUMADIN/WARFARIN INR THERAPY RANGESSTANDARD DOSE: 2.0 - 3.0 Includes: PROPHYLAXIS forvenous thrombosis, systemic embolization; TREATMENT for venous thrombosis and/or pulmonary embolus.HIGH RISK: Target INR is 2.5-3.5 for patients with mechanical heart valves.[id number] 04:34:00 Test Item Value Reference Range Comments PHOSPHORUS (BEAKER) (test mkfh=407) 3.6 mg/dL 2.3-4.7 [id number] 04:34:00 Test Item Value Reference Range Comments MAGNESIUM (BEAKER) (test rjie=483) 1.9 mg/dL 1.6-2.6 BASIC METABOLIC [id number] 04:34:00 Test Item Value Reference Range Comments SODIUM (BEAKER) (test 138 meq/L 136-145 eyrf=805) POTASSIUM (BEAKER) (test 4.1 meq/L 3.5-5.1 gfqu=694) CHLORIDE (BEAKER) (test 107 meq/L 98-107 hxpn=297) CO2 (BEAKER) (test 24 meq/L 22-29 yfsc=413) BLOOD UREA NITROGEN 13 mg/dL 7-21 (BEAKER) (test nrod=412) CREATININE (BEAKER) (test 0.85 mg/dL 0.57-1.25 gwlw=835) GLUCOSE RANDOM (BEAKER) 90 mg/dL 70-105 (test adag=848) CALCIUM (BEAKER) (test 8.8 mg/dL 8.4-10.2 znyf=401) EGFR (BEAKER) (test 92 mL/min/1.73 sq m ESTIMATED GFR IS NOT yfbo=9372) ACCURATE CREATININE CLEARANCE IN PREDICTING GLOMERULAR FILTRATION RATE. ESTIMATED GFR IS NOT APPLICABLE FOR DIALYSIS PATIENTS. LIPID [id number] 04:34:00 Test Item Value Reference Range Comments TRIGLYCERIDES (BEAKER) (test rizr=835) 74 mg/dL CHOLESTEROL (BEAKER) (test mdqh=004) 127 mg/dL HDL CHOLESTEROL (BEAKER) (test ihsk=205) 25 mg/dL LDL CHOLESTEROL CALCULATED (BEAKER) (test 87 mg/dL syes=097) Triglyceride Reference Range: Low Risk <150 Borderline 150- 199 High Risk 200-499 Very High Risk >=500Cholesterol Reference Range: Low Risk <200 Borderline 200-239 High Risk > 240HDL Cholesterol Reference Range: Low Risk >=60 High Risk <40LDL Cholesterol Reference Range: Optimal <100 Near Optimal 100-129 Borderline 130-159 High 160-189 Very High >=190HEPATIC FUNCTION [id number] 04:34:00 Test Item Value Reference Range Comments TOTAL PROTEIN (BEAKER) (test rjxi=816) 6.2 gm/dL 6.0-8.3 ALBUMIN (BEAKER) (test ygjn=9679) 3.3 g/dL 3.5-5.0 BILIRUBIN TOTAL (BEAKER) (test opkf=180) 0.5 mg/dL 0.2-1.2 BILIRUBIN DIRECT (BEAKER) (test ilez=696) 0.2 mg/dL 0.1-0.5 ALKALINE PHOSPHATASE (BEAKER) (test cvvf=866) 98 U/L 40-150 AST (SGOT) (BEAKER) (test ukxv=483) 66 U/L 5-34 ALT (SGPT) (BEAKER) (test idww=145) 52 U/L 6-55 CBC W/PLT COUNT & AUTO [id number] 04:18:00 Test Item Value Reference Range Comments WHITE BLOOD CELL COUNT (BEAKER) (test kycc=167) 3.8 K/ L 3.5-10.5 RED BLOOD CELL COUNT (BEAKER) (test bjww=697) 4.42 M/ L 4.63-6.08 HEMOGLOBIN (BEAKER) (test tyac=579) 12.1 GM/DL 13.7-17.5 HEMATOCRIT (BEAKER) (test okxs=473) 39.3 % 40.1-51.0 MEAN CORPUSCULAR VOLUME (BEAKER) (test pqgg=870) 88.9 fL 79.0-92.2 MEAN CORPUSCULAR HEMOGLOBIN (BEAKER) (test 27.4 pg 25.7-32.2 nhvi=794) MEAN CORPUSCULAR HEMOGLOBIN CONC (BEAKER) (test 30.8 GM/DL 32.3-36.5 kdcq=415) RED CELL DISTRIBUTION WIDTH (BEAKER) (test 13.8 % 11.6-14.4 iclr=485) PLATELET COUNT (BEAKER) (test dfrp=654) 139 K/CU MM 150-450 MEAN PLATELET VOLUME (BEAKER) (test fhmc=695) 9.9 fL 9.4-12.4 NUCLEATED RED BLOOD CELLS (BEAKER) (test 0 /100 WBC 0-0 nuws=155) NEUTROPHILS RELATIVE PERCENT (BEAKER) (test 54 % ywwx=930) LYMPHOCYTES RELATIVE PERCENT (BEAKER) (test 33 % lgfg=068) MONOCYTES RELATIVE PERCENT (BEAKER) (test 11 % dnxw=600) EOSINOPHILS RELATIVE PERCENT (BEAKER) (test 2 % yaab=171) BASOPHILS RELATIVE PERCENT (BEAKER) (test 1 % rwyv=303) NEUTROPHILS ABSOLUTE COUNT (BEAKER) (test 2.03 K/ L 1.78-5.38 wwka=974) LYMPHOCYTES ABSOLUTE COUNT (BEAKER) (test 1.23 K/ L 1.32-3.57 kvmg=893) MONOCYTES ABSOLUTE COUNT (BEAKER) (test 0.42 K/ L 0.30-0.82 kbfh=531) EOSINOPHILS ABSOLUTE COUNT (BEAKER) (test 0.06 K/ L 0.04-0.54 rwux=998) BASOPHILS ABSOLUTE COUNT (BEAKER) (test 0.02 K/ L 0.01-0.08 xquh=729) IMMATURE GRANULOCYTES-RELATIVE PERCENT (BEAKER) 0 % 0-1 (test skbi=2363) CBC W/PLT COUNT & AUTO [id number] 04:17:00 Test Item Value Reference Range Comments WHITE BLOOD CELL COUNT (BEAKER) (test goqa=830) 3.8 K/ L 3.5-10.5 RED BLOOD CELL COUNT (BEAKER) (test biem=395) 4.39 M/ L 4.63-6.08 HEMOGLOBIN (BEAKER) (test xamp=315) 11.9 GM/DL 13.7-17.5 HEMATOCRIT (BEAKER) (test mrbv=202) 39.0 % 40.1-51.0 MEAN CORPUSCULAR VOLUME (BEAKER) (test ewxq=613) 88.8 fL 79.0-92.2 MEAN CORPUSCULAR HEMOGLOBIN (BEAKER) (test 27.1 pg 25.7-32.2 lxzm=187) MEAN CORPUSCULAR HEMOGLOBIN CONC (BEAKER) (test 30.5 GM/DL 32.3-36.5 zrsp=374) RED CELL DISTRIBUTION WIDTH (BEAKER) (test 13.7 % 11.6-14.4 jybt=144) PLATELET COUNT (BEAKER) (test vlvm=740) 139 K/CU MM 150-450 MEAN PLATELET VOLUME (BEAKER) (test sigs=811) 9.7 fL 9.4-12.4 NUCLEATED RED BLOOD CELLS (BEAKER) (test 0 /100 WBC 0-0 ylzt=539) NEUTROPHILS RELATIVE PERCENT (BEAKER) (test 55 % bqgl=172) LYMPHOCYTES RELATIVE PERCENT (BEAKER) (test 33 % nkls=081) MONOCYTES RELATIVE PERCENT (BEAKER) (test 11 % fbyk=966) EOSINOPHILS RELATIVE PERCENT (BEAKER) (test 2 % btmn=627) BASOPHILS RELATIVE PERCENT (BEAKER) (test 0 % vqci=678) NEUTROPHILS ABSOLUTE COUNT (BEAKER) (test 2.06 K/ L 1.78-5.38 qqfr=814) LYMPHOCYTES ABSOLUTE COUNT (BEAKER) (test 1.23 K/ L 1.32-3.57 qgky=265) MONOCYTES ABSOLUTE COUNT (BEAKER) (test 0.41 K/ L 0.30-0.82 ttjq=527) EOSINOPHILS ABSOLUTE COUNT (BEAKER) (test 0.06 K/ L 0.04-0.54 kaqk=735) BASOPHILS ABSOLUTE COUNT (BEAKER) (test 0.01 K/ L 0.01-0.08 domd=587) IMMATURE GRANULOCYTES-RELATIVE PERCENT (BEAKER) 0 % 0-1 (test nnpl=4123) CT, CHEST, WITH [id number] 18:50:00Reason for exam:->chest painWhat is the patient's sedation requirement?->No SedationFINAL REPORT TECHNIQUE: CT of the chest, abdomen, and pelvis WITH intravenouscontrast and WITHOUT oral contrast. Dose modulation, iterative reconstruction, and/or weight-based adjustment of the mA/kV was utilized to reduce the radiation dose to as low as reasonably achievable. INDICATION: 61- year-old man with chest pain, weakness, abdominal pain, and bladder cancer. COMPARISON: None. FINDINGS: LINES/TUBES: None. LUNGS AND AIRWAYS: Central airways are patent. No consolidation. 3 mm nodule in the right upper lobe ( axial lung window series image 10). Linear subsegmental atelectasis in the lingula.PLEURA: The pleural spaces are clear.HEART AND MEDIASTINUM: The visualized thyroid gland is normal. No significant mediastinal, hilar, or axillary lymphadenopathy. The heart and pericardium are within normal limits. Atherosclerotic calcifications in the thoracic aorta and coronary arteries. HEPATOBILIARY: Cirrhotic morphology of the liver with scattered areas of heterogeneous enhancement and hypodensity. Cluster of subcentimeter calcifications in segment V. Gallbladder is unremarkable. No biliary ductal dilatation.SPLEEN: The spleen is enlarged, measuring 14.4 cm in greatest dimension.PANCREAS: No focal masses or ductal dilatation. ADRENALS: No adrenal nodules.KIDNEYS/URETERS: No hydronephrosis or stones. 1.3 cm exophytic cyst in the right lower pole. 1.5 cm exophytic hypodensity in the left lower pole with density greater than simple fluid.PELVIC ORGANS/BLADDER: Partially calcified 3.8 x 4.3 x 2.3 cm mass in the left bladder wall. Mild perivesical fat stranding along the left bladder wall. Prostate and seminal vesicles are grossly unremarkable. PERITONEUM/RETROPERITONEUM: No free air or fluid.LYMPH NODES: Unspecific subcentimeter retroperitoneal and periportal lymph nodes.VESSELS: Soft tissue density expansile thrombus involving the right portal vein which extends into aportion of the main portal vein. Atherosclerotic vascular calcifications without aneurysm. GI TRACT:No distention or wall thickening. Normal appendix. BONES AND SOFT TISSUES: Posterior spine. Soft tissues are unremarkable. IMPRESSION:Partially calcified left bladder mass, consistent with reported bladder cancer. Cirrhosis with splenomegaly. Heterogeneous attenuation of the liver with expansile softtissue density thrombus in the right and main portal vein, suspicious for multifocal/ infiltrative hepatocellular carcinoma. Metastatic disease from bladder cancer is less likely. Indeterminate hypodense lesion in the left kidney. Differential considerations include debris-containing cyst and neoplasm.No acute abnormalities in the chest. 3 mm pulmonary nodule in the right upper lobe. RECOMMENDATION:Abdomen MRI with and without intravenous contrast (liver protocol ) is recommended for further evaluation of the liver and left renal lesion. Signed: Cheyenne Rees MDReport Verified Date/Time: 09/17/2017 18:50:00 Reading Location: [address] Consult Reading Room CT, [id number] 18:50: 00Reason for exam:->abdominal painWhat is the patient's sedation requirement? ->No SedationFINAL REPORT TECHNIQUE: CT of the chest, abdomen, and pelvis WITH intravenouscontrast and WITHOUT oral contrast. Dose modulation, iterative reconstruction, and/or weight-based adjustment of the mA/ kV was utilized to reduce the radiation dose to as low as reasonably achievable. INDICATION: 61-year-old man with chest pain, weakness, abdominal pain, and bladder cancer. COMPARISON: None. FINDINGS: LINES/TUBES: None. LUNGS AND AIRWAYS: Central airways are patent. No consolidation. 3 mm nodule in the right upper lobe (axial lung window series image 10). Linear subsegmental atelectasis in the lingula.PLEURA: The pleural spaces are clear.HEART AND MEDIASTINUM: The visualized thyroid gland is normal. No significant mediastinal , hilar, or axillary lymphadenopathy. The heart and pericardium are within normal limits. Atherosclerotic calcifications in the thoracic aorta and coronary arteries. HEPATOBILIARY: Cirrhotic morphology of the liver with scattered areas of heterogeneous enhancement and hypodensity. Cluster of subcentimeter calcifications in segment V. Gallbladder is unremarkable. No biliary ductal dilatation.SPLEEN: The spleen is enlarged, measuring 14.4 cm in greatest dimension.PANCREAS: No focal masses or ductal dilatation. ADRENALS: No adrenal nodules.KIDNEYS/URETERS: No hydronephrosis or stones. 1.3 cm exophytic cyst in the right lower pole. 1.5 cm exophytic hypodensity in the left lower pole with density greater than simple fluid.PELVIC ORGANS/BLADDER: Partially calcified 3.8 x 4.3 x 2.3 cm mass in the left bladder wall. Mild perivesical fat stranding along the left bladder wall. Prostate and seminal vesicles are grossly unremarkable. PERITONEUM/RETROPERITONEUM: No free air or fluid.LYMPH NODES: Unspecific subcentimeter retroperitoneal and periportal lymph nodes.VESSELS: Soft tissue density expansile thrombus involving the right portal vein which extends into aportion of the main portal vein. Atherosclerotic vascular calcifications without aneurysm. GI TRACT:No distention or wall thickening. Normal appendix. BONES AND SOFT TISSUES: Posterior spine. Soft tissues are unremarkable. IMPRESSION:Partially calcified left bladder mass, consistent with reported bladder cancer. Cirrhosis with splenomegaly. Heterogeneous attenuation of the liver with expansile softtissue density thrombus in the right and main portal vein, suspicious for multifocal/ infiltrative hepatocellular carcinoma. Metastatic disease from bladder cancer is less likely. Indeterminate hypodense lesion in the left kidney. Differential considerations include debris-containing cyst and neoplasm.No acute abnormalities in the chest. 3 mm pulmonary nodule in the right upper lobe. RECOMMENDATION:Abdomen MRI with and without intravenous contrast (liver protocol ) is recommended for further evaluation of the liver and left renal lesion. Signed: Cheyenne Rees MDReport Verified Date/Time: 09/17/2017 18:50:00 Reading Location: [facility] B1 C013W Consult Reading Room [facility] METABOLIC [id number] 15:42:00 Test Item Value Reference Range Comments SODIUM (BEAKER) (test 139 meq/L 136-145 olle=216) POTASSIUM (BEAKER) (test 4.2 meq/L 3.5-5.1 yqgw=131) CHLORIDE (BEAKER) (test 106 meq/L 98-107 xfsw=477) CO2 (BEAKER) (test 25 meq/L 22-29 pmkr=902) BLOOD UREA NITROGEN 12 mg/dL 7-21 (BEAKER) (test lslf=002) CREATININE (BEAKER) (test 0.84 mg/dL 0.57-1.25 ejnu=386) GLUCOSE RANDOM (BEAKER) 109 mg/dL 70-105 (test lkxx=068) CALCIUM (BEAKER) (test 9.7 mg/dL 8.4-10.2 ypjg=560) EGFR (BEAKER) (test mL/min/1.73 sq m INSUFFICIENT CLINICAL DATA vtxg=5747) TO CALCULATE ESTIMATED GFR. CBC W/PLT COUNT & AUTO [id number] 15:29:00 Test Item Value Reference Range Comments WHITE BLOOD CELL COUNT (BEAKER) (test ttrg=276) 5.5 K/ L 3.5-10.5 RED BLOOD CELL COUNT (BEAKER) (test vcsi=616) 4.65 M/ L 4.63-6.08 HEMOGLOBIN (BEAKER) (test pjkm=556) 12.8 GM/DL 13.7-17.5 HEMATOCRIT (BEAKER) (test mczb=137) 41.6 % 40.1-51.0 MEAN CORPUSCULAR VOLUME (BEAKER) (test shfg=157) 89.5 fL 79.0-92.2 MEAN CORPUSCULAR HEMOGLOBIN (BEAKER) (test 27.5 pg 25.7-32.2 lrdf=539) MEAN CORPUSCULAR HEMOGLOBIN CONC (BEAKER) (test 30.8 GM/DL 32.3-36.5 gcsr=945) RED CELL DISTRIBUTION WIDTH (BEAKER) (test 13.8 % 11.6-14.4 ynyf=686) PLATELET COUNT (BEAKER) (test hpeo=854) 168 K/CU MM 150-450 MEAN PLATELET VOLUME (BEAKER) (test rcre=708) 9.5 fL 9.4-12.4 NUCLEATED RED BLOOD CELLS (BEAKER) (test 0 /100 WBC 0-0 ikis=064) NEUTROPHILS RELATIVE PERCENT (BEAKER) (test 59 % tpkx=936) LYMPHOCYTES RELATIVE PERCENT (BEAKER) (test 27 % gqdo=184) MONOCYTES RELATIVE PERCENT (BEAKER) (test 12 % knjs=438) EOSINOPHILS RELATIVE PERCENT (BEAKER) (test 1 % zbjp=197) BASOPHILS RELATIVE PERCENT (BEAKER) (test 1 % qavb=779) NEUTROPHILS ABSOLUTE COUNT (BEAKER) (test 3.26 K/ L 1.78-5.38 enur=979) LYMPHOCYTES ABSOLUTE COUNT (BEAKER) (test 1.50 K/ L 1.32-3.57 jgvx=511) MONOCYTES ABSOLUTE COUNT (BEAKER) (test 0.66 K/ L 0.30-0.82 cgdr=379) EOSINOPHILS ABSOLUTE COUNT (BEAKER) (test 0.08 K/ L 0.04-0.54 atxq=417) BASOPHILS ABSOLUTE COUNT (BEAKER) (test 0.03 K/ L 0.01-0.08 lksb=332) IMMATURE GRANULOCYTES-RELATIVE PERCENT (BEAKER) 0 % 0-1 (test lmde=1257) URINALYSIS W/ REFLEX URINE [id number] 15:18:00 Test Item Value Reference Range Comments COLOR (BEAKER) (test dnsz=568) Red CLARITY (BEAKER) (test vyof=913) Cloudy SPECIFIC GRAVITY UA (BEAKER) (test knnt=901) 1.021 1.001-1.035 PH UA (BEAKER) (test kixq=198) 5.5 5.0-8.0 PROTEIN UA (BEAKER) (test qxpg=381) 100 mg/dL Negative GLUCOSE UA (BEAKER) (test tofz=149) Negative Negative KETONES UA (BEAKER) (test ewke=486) Negative Negative BILIRUBIN UA (BEAKER) (test illv=332) Negative Negative BLOOD UA (BEAKER) (test qmtj=210) Large Negative NITRITE UA (BEAKER) (test bljs=531) Negative Negative LEUKOCYTE ESTERASE UA (BEAKER) (test pxiv=873) Trace Negative UROBILINOGEN UA (BEAKER) (test pjlx=837) 2.0 mg/dL 0.2-1.0 RBC UA (BEAKER) (test emjt=318) > /HPF WBC UA (BEAKER) (test yhjp=429) 22 /HPF MUCUS (BEAKER) (test gtyr=3256) Many SOURCE(BEAKER) (test jytv=2968)
[2018-01-25] MEDS ORDERED: FENTANYL CITR 100 MCG/2 ML ONE (16:35)
[2018-01-25] MEDS ORDERED: ONDANSETRON 4 MG/2 ML VIAL ONE (16:35)
[2018-01-25] MEDS ORDERED: METOCLOPRAMIDE 10 MG/2mL INJ ONE (16:46)
[2018-01-25 17:07] LABS: Protime INR 1.05
--- NOTE | 2018-01-25 17:07 | RAD REPORT ---
EXAM DESCRIPTION: CT - Head Brain Wo Cont - 01/25/2018 4:49 pm CLINICAL HISTORY: Syncope, shortness of breath COMPARISON: None. TECHNIQUE: Axial 5 mm thick images of the head were obtained without IV contrast. All CT scans are performed using dose optimization technique as appropriate and may include automated exposure control or mA/KV adjustment according to patient size. FINDINGS: No intracranial hemorrhage is present. No mass effect, edema or shift of midline structure s. Decreased attenuation is present in the lateral right frontal lobe subcortical white matter. This is typically an area of old ischemic change. In a patient with a malignant history, metastatic diseas e is unlikely but not entirely excluded. Patient otherwise has little identifiable chronic ischemic c hange. Atrophy changes are minimal. Ventricles are in proportion to any volume loss. No cortical infa rction, cortical edema or sulcal effacement. Mastoid air cells and visualized portions of the paranasal sinuses are clear. No acute bony findings. Dense arterial tree calcifications are present. IMPRESSION: No intracranial hemorrhage, mass or edema. No acute cortical based infarction. Focal subcortical decreased attenuation lateral right frontal lo be is most likely an old ischemic event. Nonhemorrhagic acute infarctions are potentially masked in this setting. A small metastatic focus is unlikely but not entirely excluded in a patient with a metastatic malignant history. If the patient has continued, unexplained symptoms, contrast-enhanced MR imaging could be obtained.
[2018-01-25 17:12] LABS: Absolute Lymphocytes (CBC) 1.3 K/uL (0.7-4.9); Absolute Monocytes 0.6 K/uL (0.1-1.3); Absolute Neutrophil 2.4 K/uL (1.8-8.0); Basophils % 1.2 % (0-1.3); Eosinophils % 1.2 % (0-4.4); Lymphocytes % 29.4 % (15.3-44.8); MCH 19.9 pg (27.0-35.0); MCV 67.1 fL (80-100); Monocytes % 13.9 % (3.3-12.3); RBC Red Blood Cell Count 3.02 M/uL (4.33-5.43)
[2018-01-25 17:15] LABS: Hematocrit 20.2 % (39.6-49.0)
[2018-01-25 17:24] LABS: ALT/SGPT 31 U/L (12-78); AST/SGOT 72 U/L (15-37); Alkaline Phosphatase 179 U/L (45-117); BUN Blood Urea Nitrogen 16 mg/dL (7-18); Bicarbonate 26 mmol/L (21-32); Bilirubin Direct 0.2 mg/dL (0-0.2); Bilirubin Total 0.6 mg/dL (0.2-1.0); Glucose Level 104 mg/dL (74-106); Magnesium 2.1 mg/dL (1.8-2.4); NT PRO-BNP 85 pg/mL (<125); Potassium 4.2 mmol/L (3.5-5.1); Protein, Total 7.3 g/dL (6.4-8.2); Sodium Level 139 mmol/L (136-145); Troponin (Emerg Dept Use Only) < 0.02 ng/mL (0.0-0.045)
[2018-01-25] MEDS ORDERED: NA CHLORIDE 0.9% 250 ML ONE ×2 (17:42→22:11)
--- NOTE | 2018-01-25 17:45 | ER ---
Nurse's Notes [facility] Name: Vaughn Thakur Age: 62 yrs Sex: Male : 1955 Arrival Date: 01/25/2018 Time: 15:51 Bed 5 Private MD: Diagnosis: Acute Anemia;Chronic obstructive pulmonary disease with (acute) exacerbation Presentation: 01/25 15:51 Presenting complaint: Patient states: SOB x 3 days. Near syncope today. Pt appears ss pale, reports hematuria all the time as he has bladder CA. Transition of care: patient was not received from another setting of care. Onset of symptoms was January 22, 2018. Risk Assessment: Do you want to hurt yourself or someone else? Patient reports no desire to harm self or others. Initial Sepsis Screen: Does the patient meet any 2 criteria? RR > 20 per min. Does the patient have a suspected source of infection? No. Patient's initial sepsis screen is negative. Care prior to arrival: Medication(s) given: Albuterol Neb x 1, Atrovent Neb x 1, zofran 4 mg, IV initiated. 20 GA, in the right antecubital area. 15:51 Method Of Arrival: EMS: [facility] 15:51 Acuity: BECKY 2 ss Triage Assessment: 19:15 Respiratory: Onset: The symptoms/episode began/occurred gradually. rr5 19:18 Respiratory: rr5 Historical: - Allergies: 15:55 pulmacort; ss - PMHx: 15:55 Asthma; liver CA; bladder CA; ss 16:00 COPD; ss - Immunization history:: Adult Immunizations unknown. - Ebola Screening: : Patient denies exposure to infectious person Patient denies travel to an Ebola-affected area in the 21 days before illness onset. Screenin:09 Abuse screen: Denies threats or abuse. Denies injuries from another. Nutritional ss screening: No deficits noted. Tuberculosis screening: Never had TB. Fall Risk No fall in past 12 months (0 pts). Secondary diagnosis (15 points) difficulty breathing. IV access (20 points). Ambulatory Aid- None/Bed Rest/Nurse Assist (0 pts). Mental Status- Oriented to own ability (0 pts). Assessment: 16:07 General: Appears distressed, uncomfortable, Behavior is cooperative, restless, Patient ss is joking and laughing with ED staff despite not feeling well. Reports feeling ill for 2-3 days, fatigue for 2-3 days, Denies fever. Pain: Complains of pain in abdomen Pain currently is 7 out of 10 on a pain scale. Is continuous. Neuro: Level of Consciousness is awake, alert, obeys commands, Oriented to person, place, time, situation. Cardiovascular: Rhythm is sinus rhythm. Respiratory: Airway is patent Respiratory effort is even, labored, Respiratory pattern is tachypnea. GI: Abdomen is round Reports nausea. Derm: Skin is intact, is healthy with good turgor, Skin is pale, Skin temperature is warm. Musculoskeletal: Range of motion: intact in all extremities. 16:35 General: Appears uncomfortable, unkempt, Behavior is cooperative, restless, Reports sv feeling ill for fatigue for. Pain: Complains of pain in abdomen Pain currently is 7 out of 10 on a pain scale. Is continuous. Neuro: Level of Consciousness is awake, alert, obeys commands, Oriented to person, place, time, situation, Moves all extremities. Speech is normal. Cardiovascular: Heart tones S1 S2 present Pulses are 2+ in right radial artery and left radial artery Rhythm is sinus rhythm. Respiratory: Airway is patent Respiratory effort is even, labored, Respiratory pattern is symmetrical, tachypnea Breath sounds are clear bilaterally. GI: Abdomen is round Reports nausea. : Reports discharge, bloody. Derm: Skin is pale, Skin temperature is cool. Musculoskeletal: Range of motion:. 17:20 Reassessment: Patient appears in no apparent distress at this time. No changes from sv previously documented assessment. 18:35 Reassessment: 1st unit of PRBCs started, see blood transfusion record. sv 19:14 General: Appears distressed, comfortable, Behavior is calm, cooperative, Reports hungry rr5 Denies. Pain: Denies pain. Neuro: Level of Consciousness is awake, alert, obeys commands, Oriented to person, place, time, situation, Moves all extremities. Speech is normal. Cardiovascular: Heart tones S1 S2 present Pulses are all present. Rhythm is sinus rhythm. Respiratory: Airway is patent Respiratory effort is even, unlabored, Respiratory pattern is symmetrical, Breath sounds are clear. GI: Abdomen is round. : Urine is tea colored Reports discharge, bloody. EENT: No signs and/or symptoms were reported regarding the EENT system. Derm: Skin is intact, is healthy with good turgor, Skin is pink, warm \T\ dry. Skin temperature is warm cool. Musculoskeletal: Capillary refill < 3 seconds, Range of motion: intact in all extremities. 19:41 Reassessment: Patient appears in no apparent distress at this time. transferred to [facility] level 4 vitally stable with no complaints made. ongoing blood transfusion 1st unit PRBc Patient states symptoms have improved. Vital Signs: 15:55 BP 113 / 75; Pulse 82; Resp 35; Pulse Ox 89% on R/A; Pain 7/10; ss 16:09 Temp 97.8(TE); ss 17:00 BP 122 / 74; Pulse 87; Resp 19; Pulse Ox 100% on 2 lpm NC; sv 18:25 BP 112 / 55; Pulse 79; Resp 22; Temp 96.8; Pulse Ox 100% on 2 lpm NC; sv 18:40 BP 110 / 52; Pulse 80; Resp 14; Temp 97.5; Pulse Ox 100% on 2 lpm NC; sv 18:50 BP 109 / 55; Pulse 84; Resp 19; Temp 97.6; Pulse Ox 100% on 2 lpm NC; sv 19:05 BP 110 / 54; Pulse 84; Resp 24; Temp 97.2(TE); Pulse Ox 99% on NC; Pain 0/10; rr5 19:25 BP 116 / 55; Pulse 83; Resp 21; Temp 97.4; Pulse Ox 100% on NC; Pain 0/10; rr5 ED Course: 15:51 Patient arrived in ED. ss 15:53 [facility] jr8 15:53 Austin Funes MD is Attending Physician. jr8 15:53 Triage completed. ss 15:55 Arm band placed on left wrist. ss 15:58 EKG done, by principal technical architect. reviewed by Roger EUCEDA. sm3 16:09 Patient has correct armband on for positive identification. Bed in low position. Call light in reach. Side rails up X2. hospital monitor on. Pulse ox on. NIBP on. 16:11 Valentina Brown RN is Primary Nurse. sv 16:35 Door closed. Warm blanket given. Head of bed elevated. sv 16:35 Maintain EMS IV. Dressing intact. Site clean \T\ dry. Gauge \T\ site: 20G R AC. sv 16:48 CT Head Brain wo Cont In Process Unspecified. EDMS 17:00 Inserted saline lock: 22 gauge in right antecubital area, using aseptic technique. sv ,using aseptic technique. diffusics, done by [facility]. 17:22 XRAY Chest (1 view) In Process Unspecified. EDMS 17:43 Patient moved to MT via stretcher. 17:43 Shelby Davidson MD is Hospitalizing Provider. jr8 18:00 CT completed. Patient tolerated procedure well. Patient moved back from CT. nj 18:00 Consent for blood and/or blood product transfusion explained by staff, signed by sv patient. 18:25 IV discontinued, intact, bleeding controlled, No redness/swelling at site. Pressure sv dressing applied, IV to the L AC. 18:51 CT Chest, Abdomen, Pelvis - W/Contrast Sent. sv 19:00 Report given to [place] RN and Erik RN. sv 19:40 No provider procedures requiring assistance completed. rr5 19:45 Primary Nurse role handed off by Valentina Brown RN sv Administered Medications: 16:38 Drug: Zofran 4 mg Route: IVP; Site: right antecubital; sv 17:00 Follow up: Response: No adverse reaction sv 16:40 Drug: fentaNYL (PF) 50 mcg Route: IVP; Site: right antecubital; sv 17:00 Follow up: Response: No adverse reaction sv 16:50 Drug: Reglan 10 mg Route: IVP; Site: right antecubital; sv 17:00 Follow up: Response: No adverse reaction sv 18:25 Drug: Xopenex 1.25 mg Route: Inhalation; sv 18:27 Follow up: Pt took off the mask and did not want to finish the treatment. Stated that sv he has his rescue inhaler. Intake: 19:00 tea colored rr5 Output: 19:00 Urine: 100ml (Voided); Total: 100ml. rr5 19:00 tea colored rr5 Outcome: 17:44 Decision to Hospitalize by Provider. jr8 19:40 Admitted to Tele accompanied by nurse, via stretcher, with oxygen, Report called to rr5 tai MILAN 19:40 Condition: stable 19:40 Instructed on the need for admit. 20:18 Patient left the ED. rr5 Signatures: Dispatcher [employer] Valentina Wyatt, RN RN Anuel Alaniz Shelby, RN RN Roger Rahman PA PA 8 Ion John Shakira sm3 Erik Taylor RN RN rr5 Corrections: (The following items were deleted from the chart) 19:39 19:16 BP 110 / 54; Pulse 84bpm; Resp 24bpm; Pulse Ox 99% Nasal Cannula; Temp 97.2F rr5 Temporal; Pain 0/10; rr5
--- NOTE | 2018-01-25 17:45 | EDPHYS ---
Physician Documentation [facility] Name: Vaughn Thakur Age: 62 yrs Sex: Male : 1955 Arrival Date: 01/25/2018 Time: 15:51 Bed 5 Private MD: ED Physician Austin Funes HPI: 01/25 17:01 This 62 yrs old Male presents to ER via EMS with complaints of Shortness Of jr8 Breath. 17:01 The patient has shortness of breath at rest. Onset: The symptoms/episode began/occurred jr8 acutely, 3 day(s) ago. Duration: The symptoms are continuous. The patient's shortness of breath is aggravated by light activity. Associated signs and symptoms: The patient has no apparent associated signs or symptoms. Severity of symptoms: At their worst the symptoms were moderate in the emergency department the symptoms are unchanged. The patient has experienced similar episodes in the past, a few times. The patient has not recently seen a physician. Patient with history of COPD, Liver Cancer, and Bladder Cancer. Stated that he is not undergoing any more treatment for the cancer and wants to live out the rest of his life as is without anymore cancer treatment. Stated that he has felt short of breath for the past three days. Currently without any other complaints. Did verbally consent to treatment as long as it did not include intubation or CPR . Historical: - Allergies: 15:55 pulmacort; ss - PMHx: 15:55 Asthma; liver CA; bladder CA; ss 16:00 COPD; ss - Immunization history:: Adult Immunizations unknown. - Ebola Screening: : Patient denies exposure to infectious person Patient denies travel to an Ebola-affected area in the 21 days before illness onset. ROS: 17:01 Eyes: Negative for injury, pain, redness, and discharge, ENT: Negative for injury, jr8 pain, and discharge, Neck: Negative for injury, pain, and swelling, Cardiovascular: Negative for chest pain, palpitations, and edema, Abdomen/GI: Negative for abdominal pain, nausea, vomiting, diarrhea, and constipation, Back: Negative for injury and pain, MS/Extremity: Negative for injury and deformity, Skin: Negative for injury, rash, and discoloration, Neuro: Negative for headache, weakness, numbness, tingling, and seizure. 17:01 Respiratory: Positive for dyspnea on exertion, shortness of breath. Exam: 17:01 Eyes: Pupils equal round and reactive to light, extra-ocular motions intact. Lids and jr8 lashes normal. Conjunctiva and sclera are non-icteric and not injected. Cornea within normal limits. Periorbital areas with no swelling, redness, or edema. ENT: Nares patent. No nasal discharge, no septal abnormalities noted. Tympanic membranes are normal and external auditory canals are clear. Oropharynx with no redness, swelling, or masses, exudates, or evidence of obstruction, uvula midline. Mucous membranes moist. Neck: Trachea midline, no thyromegaly or masses palpated, and no cervical lymphadenopathy. Supple, full range of motion without nuchal rigidity, or vertebral point tenderness. No Meningismus. Cardiovascular: Regular rate and rhythm with a normal S1 and S2. No gallops, murmurs, or rubs. Normal PMI, no JVD. No pulse deficits. Back: No spinal tenderness. No costovertebral tenderness. Full range of motion. Skin: Warm, dry with normal turgor. Normal color with no rashes, no lesions, and no evidence of cellulitis. MS/ Extremity: Pulses equal, no cyanosis. Neurovascular intact. Full, normal range of motion. Neuro: Awake and alert, GCS 15, oriented to person, place, time, and situation. Cranial nerves II-XII grossly intact. Motor strength 5/5 in all extremities. Sensory grossly intact. Cerebellar exam normal. Normal gait. 17:01 Respiratory: mild respiratory distress is noted, Respirations: tachypnea, Breath sounds: decreased breath sounds, that are mild, are located in both bases. 17:01 Abdomen/GI: Inspection: abdomen appears normal, Bowel sounds: active, all quadrants, Palpation: soft, in all quadrants, mild abdominal tenderness, in the epigastric area, mass, is not appreciated, rebound tenderness, is not appreciated, voluntary guarding, is not appreciated, involuntary guarding, is not appreciated, no appreciated organomegaly, Indicators: McBurney's point is not tender, Ventura's sign is negative, Rovsing's sign is negative. Vital Signs: 15:55 BP 113 / 75; Pulse 82; Resp 35; Pulse Ox 89% on R/A; Pain 7/10; ss 16:09 Temp 97.8(TE); ss 17:00 BP 122 / 74; Pulse 87; Resp 19; Pulse Ox 100% on 2 lpm NC; sv 18:25 BP 112 / 55; Pulse 79; Resp 22; Temp 96.8; Pulse Ox 100% on 2 lpm NC; sv 18:40 BP 110 / 52; Pulse 80; Resp 14; Temp 97.5; Pulse Ox 100% on 2 lpm NC; sv 18:50 BP 109 / 55; Pulse 84; Resp 19; Temp 97.6; Pulse Ox 100% on 2 lpm NC; sv 19:05 BP 110 / 54; Pulse 84; Resp 24; Temp 97.2(TE); Pulse Ox 99% on NC; Pain 0/10; rr5 19:25 BP 116 / 55; Pulse 83; Resp 21; Temp 97.4; Pulse Ox 100% on NC; Pain 0/10; rr5 MDM: 15:53 Patient medically screened. [facility] 17:43 Data reviewed: vital signs, nurses notes, lab test result(s), EKG, radiologic studies, [facility] CT scan, plain films. Data interpreted: Pulse oximetry: on room air is 89 %. Interpretation: hypoxia. Counseling: I had a detailed discussion with the patient and/or guardian regarding: the historical points, exam findings, and any diagnostic results supporting the discharge/admit diagnosis, lab results, radiology results, the need for further work-up and treatment in the hospital. Response to treatment: the patient's symptoms have markedly improved after treatment. Physician consultation: Shelby Davidson MD was called at 17:43, was contacted at 17:43, regarding admission, to the telemetry unit. consult, patient's condition, and will see patient. 01/25 16:02 Order name: Basic Metabolic Panel; Complete Time: 17: [facility] 01/25 16:02 Order name: CBC with Diff; Complete Time: 17: [facility] 01/25 16:02 Order name: LFT's; Complete Time: 17: [facility] 01/25 16:02 Order name: Magnesium; Complete Time: 17: [facility] 01/25 16:02 Order name: NT PRO-BNP; Complete Time: 17:27 [facility] 01/25 16:02 Order name: PT-INR; Complete Time: 17: [facility] 01/25 16:02 Order name: Troponin (emerg Dept Use Only); Complete Time: 17:27 [facility] 01/25 16:02 Order name: XRAY Chest (1 view); Complete Time: 06:15 [facility] 01/25 16:02 Order name: TS [facility] 01/25 16:02 Order name: Blood Culture Adult (2) [facility] 01/25 16:02 Order name: CT Head Brain wo Cont; Complete Time: 17:09 [facility] 01/25 16:09 Order name: AMMONIA; Complete Time: 17:27 [facility] 01/25 17:28 Order name: Packed RBC Leukored -1 EDWY 01/25 17:30 Order name: ABO/RH no charge; Complete Time: 17:34 EDMS 01/25 16:02 Order name: EKG; Complete Time: 16:35 [facility] 01/25 16:02 Order name: Cardiac monitoring; Complete Time: 16:11 [facility] 01/25 16:02 Order name: EKG - Nurse/Tech; Complete Time: 18:52 [facility] 01/25 16:02 Order name: IV Saline Lock; Complete Time: 18:52 [facility] 01/25 16:02 Order name: Labs collected and sent; Complete Time: 18:52 [facility] 01/25 16:02 Order name: O2 Per Protocol; Complete Time: 16:12 [facility] 01/25 16:02 Order name: O2 Sat Monitoring; Complete Time: 16:12 [facility] 01/25 17:38 Order name: CT Chest, Abdomen, Pelvis - W/Contrast [facility] 01/25 18:44 Order name: CT; Complete Time: 18:54 EDMS Administered Medications: 16:38 Drug: Zofran 4 mg Route: IVP; Site: right antecubital; sv 17:00 Follow up: Response: No adverse reaction sv 16:40 Drug: fentaNYL (PF) 50 mcg Route: IVP; Site: right antecubital; sv 17:00 Follow up: Response: No adverse reaction sv 16:50 Drug: Reglan 10 mg Route: IVP; Site: right antecubital; sv 17:00 Follow up: Response: No adverse reaction sv 18:25 Drug: Xopenex 1.25 mg Route: Inhalation; sv 18:27 Follow up: Pt took off the mask and did not want to finish the treatment. Stated that sv he has his rescue inhaler. Disposition: 01/25/18 17:44 Hospitalization ordered by Shelby Davidson for Inpatient Admission. Preliminary diagnosis are Acute Anemia, Chronic obstructive pulmonary disease with (acute) exacerbation. - Bed requested for Telemetry/MedSurg (Inpatient). - Status is Inpatient Admission. rr5 - Condition is Fair. - Problem is new. - Symptoms have improved. UTI on Admission? No Addendum: 01/28/2018 09:39 Co-signature as Attending Physician, Austin Funes MD I agree with the assessment and c shields plan of care. Signatures: Dispatcher [employer] EDValentina Pascual, RN RN Yamilet Ware RN RN dw Anderson, Corey, MD MD cha Smirch, Shelby, RN RN ss Roger Matamoros PA PA jr8 [place] Guillermo, ADDY CHOIR DIRECTOR pm1 Erik Taylor RN RN rr5 Corrections: (The following items were deleted from the chart) 01/25 18:35 17:44 Hospitalization Ordered by Shelby Davidson MD for Inpatient Admission. Preliminary dw diagnosis is Acute Anemia; Chronic obstructive pulmonary disease with (acute) exacerbation. Bed requested for Telemetry/MedSurg (Inpatient). Status is Inpatient Admission. Condition is Fair. Problem is new. Symptoms have improved. UTI on Admission? No. jr8 20:18 18:35 01/25/2018 17:44 Hospitalization Ordered by Shelby Davidson MD for Inpatient rr5 Admission. Preliminary diagnosis is Acute Anemia; Chronic obstructive pulmonary disease with (acute) exacerbation. Bed requested for Telemetry/MedSurg (Inpatient). Status is Inpatient Admission. Condition is Fair. Problem is new. Symptoms have improved. UTI on Admission? No. dw
[2018-01-25] MEDS ORDERED: LEVALBUTEROL 1.25 MG/3 ML NEB ONE (18:25)
--- NOTE | 2018-01-25 18:43 | RAD REPORT ---
EXAM DESCRIPTION: CT - Chest Abdomen Pelvis W Cont - 01/25/2018 6:00 pm CLINICAL HISTORY: Chest pain, shortness of breath, syncope, hematuria, history of bladder and liver cancer COMPARISON: None. TECHNIQUE: Following dynamic enhancement using 100 milliliters nonionic IV contrast, axial imaging o f the chest, abdomen and pelvis was performed. Biphasic technique was utilized through the abdomen. Oral contrast was administered. All CT scans are performed using dose optimization technique as appropriate and may include automated exposure control or mA/KV adjustment according to patient size. FINDINGS: Lungs are clear of mass and infiltrate. No pleural effusion, pleural thickening or pneumot horax. No significant aortic or pulmonary arterial tree finding. Mediastinal and hilar regions show n o mass or abnormal lymphadenopathy. No chest wall mass or axillary lymphadenopathy. No pericardial th ickening or effusion. Advanced cirrhotic changes are present in the liver. Partially exophytic 3.1 centimeter mass is prese nt right lobe near the gallbladder fossa. No other definitive mass lesion on CT criteria. This may be the historically stated liver cancer. Mild splenomegaly present. No acute pancreatic process. Gallbladder and biliary tree are unremarkable . Gallstones can be occult on CT imaging. Symmetric renal function is seen with no mass or hydroneph rosis. Small renal cysts are present. Nonobstructing calculi are present. Bilateral adrenal gland enlargement. This could be adrenal hyperplasia or adrenal masses. Right adren al mass is 3.8 x 1.8 cm. Left adrenal mass is 4.0 x 2.5 cm with an additional 2.5 centimeter adrenal mass. Small adjacent lymph nodes are seen extending towards the gastrohepatic ligament. Periportal an d peripancreatic small lymph nodes are present. Diminished attenuation in the portal vein is present suspected to be portal thrombus. No gastric dilatation or wall thickening. No dilated large or small bowel loops. Moderate stool volum e throughout the colon. No appendicitis. Diverticulosis is minimal. No acute GI findings seen. No free air, free fluid or inflammatory stranding. Calcified mass is present in the bladder lumen. No overall bladder enlargement. Prostate gland and seminal vesicles are normal range. Arterial calcifications are present. No pathologic bone process seen. IMPRESSION: Advanced liver cirrhosis with a 3.1 centimeter mass near the gallbladder fossa. This is presumed to be the historically stated liver malignancy. No other definitive liver lesion. Bilateral adrenal gland hyperplasia or adrenal gland masses. Calcified mass of the urinary bladder within the central lumen. No adjacent bladder lymphadenopathy. Partially occlusive portal vein thrombus. No acute CT chest finding.
--- NOTE | 2018-01-25 18:45 | EKG ---
Test Date: 2018-01-25 Test Time: 15:54:04 Chief Yeoman: KELLE MEASUREMENT RESULTS: Intervals: Rate: 80 AR: 144 QRSD: 82 QT: 386 QTc: 445 [place]: P: 79 AR: 144 QRS: 63 T: 73 INTERPRETIVE STATEMENTS: Normal sinus rhythm Normal ECG No previous ECG available for comparison Electronically Signed On 01-25-18 18:44:41 COMMERCIAL MARKETING SPECIALIST by You Tolentino
--- NOTE | 2018-01-25 19:56 | RAD REPORT ---
EXAM DESCRIPTION: RAD - Chest Single View - 01/25/2018 5:22 pm CLINICAL HISTORY: Dyspnea COMPARISON: None. TECHNIQUE: AP portable chest image was obtained 1705 hours . FINDINGS: No peripheral mass, consolidation or failure. Interstitial markings in each base are accen tuated by the shallow inspiration. No significant infiltrate or edema finding. Heart and vasculature are normal. No measurable pleural effusion and no pneumothorax. No acute bony abnormality seen. No ac [place] aortic findings suspected. IMPRESSION: No acute cardiopulmonary process.
[2018-01-25 20:55] VITALS: BMI 28.6
[2018-01-26] MEDS: MORPHINE 4 MG/ML SYR IV PRN ×5 (00:10→22:22)
[2018-01-26 06:12] LABS: Absolute Lymphocytes (CBC) 0.9 K/uL (0.7-4.9); Absolute Monocytes 0.4 K/uL (0.1-1.3); Absolute Neutrophil 1.9 K/uL (1.8-8.0); Basophils % 0.7 % (0-1.3); Eosinophils % 1.4 % (0-4.4); Hematocrit 24.1 % (39.6-49.0); Lymphocytes % 27.5 % (15.3-44.8); MCH 22.7 pg (27.0-35.0); MCV 71.7 fL (80-100); MPV 8.1 fL (7.6-11.3); Monocytes % 13.3 % (3.3-12.3); RBC Red Blood Cell Count 3.36 M/uL (4.33-5.43)
[2018-01-26 06:30] LABS: Albumin 2.9 g/dL (3.4-5.0); Bilirubin Total 0.6 mg/dL (0.2-1.0); Potassium 4.5 mmol/L (3.5-5.1); Protein, Total 6.7 g/dL (6.4-8.2)
[2018-01-26] MEDS ORDERED: NA CHLORIDE 0.9% 250 ML ONE (09:51)
--- NOTE | 2018-01-26 10:36 | P.HP ---
Certification for Inpatient Patient admitted to: Inpatient With expected LOS: >2 Midnights Patient will require the following post-hospital care: None Practitioner: I am a practitioner with admitting privileges, knowledge of patient current condition, hospital course, and medical plan of care. Services: Services provided to patient in accordance with Admission requirements found in Title 42 Section 412.3 of the Code of Federal Regulations Patient History Date of Service: 01/25/18 Reason for admission: Anemia of chronic disease/acute blood loss anemia History of Present Illness: Patient is a 62-year-old gentleman with a history of bladder and liver cancer, who presents to the ER with shortness of breath and weakness. Patient was found have severe anemia. Patient was typed and screened for 2 units and these her transfuse. Clinically patient appears to be somewhat better. Will have PT and social services technician up engage with discharge planning. Patient is doing better after the 2 units of packed red blood cells and patient is clinically stable for discharge in a.m. as long as hemoglobin is stable. Allergies budesonide [From Pulmicort] Allergy (Verified 08/27/17 07:58) Shortness of breath Home Medications: Albuterol Inhaler [Ventolin Inhaler*] 1 aer IH PRN 08/27/17 Montelukast Sodium [Singulair] 1 tab PO DAILY 08/27/17 Tamsulosin HCl [Flomax] 1 tab PO DAILY 08/27/17 Hydrocodone/Acetaminophen [Hydrocodone-Acetamin 10-325 mg] 1 tab PO Q6H PRN 12/04 - Past Medical/Surgical History Has patient received pneumonia vaccine in the past: No Diabetic: No -: Hep C -: Liver Cancer -: Bladder Cancer -: Asthma -: COPD Past Surgical History: Patient denies surgical history - Family History Mother Medical History: Lung disease - Social History Smoking Status: Former smoker Alcohol use: No CD- Drugs: No Caffeine use: Yes Place of Residence: Home Review of Systems 10-point ROS is otherwise unremarkable Physical Examination - Vital Signs Temperature: 98.7 F Blood Pressure: 98/53 Pulse: 70 Respirations: 18 Pulse Ox (%): 98 - Physical Exam General: Alert, In no apparent distress, Oriented x3 HEENT: Atraumatic, PERRLA, Mucous membr. moist/pink, EOMI, Sclerae nonicteric Neck: Supple, 2+ carotid pulse no bruit, No LAD, Without JVD or thyroid abnormality Respiratory: Clear to auscultation bilaterally, Normal air movement Cardiovascular: Regular rate/rhythm, Normal S1 S2, No murmurs Gastrointestinal: Normal bowel sounds, Hypoactive, Soft and benign, Non- distended, No tenderness Musculoskeletal: No clubbing, No swelling, No tenderness Integumentary: No rashes Neurological: Normal gait, Normal strength at 5/5 x4 extr, Normal tone, Sensation intact, Cranial nerves 3-12 intact, Normal affect Lymphatics: No axilla or inguinal lymphadenopathy - Studies Laboratory Data (last 24 hrs) 01/25/18 16:30: PT 12.4, INR 1.05 01/25/18 16:30: WBC 4.4, Hgb 6.0 L*, Hct 20.2 L*, Plt Count 222 01/25/18 16:30: Sodium 139, Potassium 4.2, BUN 16, Creatinine 1.00, Glucose 104 , Magnesium 2.1, Total Bilirubin 0.6, AST 72 H, ALT 31, Alkaline Phosphatase 179 H Assessment & Plan - Problems (Diagnosis) (1) Bladder cancer metastasized to liver Current Visit: Yes Status: Acute (2) Anemia due to acute blood loss Current Visit: Yes Status: Acute (3) Generalized weakness Current Visit: Yes Status: Acute (4) Shortness of breath Current Visit: Yes Status: Acute - Plan 1. Type and cross 2 units of packed red blood cells and transfused 2. Continue with IV antibiotics 3. Continue with pain control 4. NPO 5. Urology consultation; outpatient cystoscopy in 1-2 weeks 6. Serial H&H, and we will monitor CBC, BMP, LFTs and lipase along with electrolytes. 7. GI and DVT prophylaxis Discharge Plan: Home Plan to discharge in: 72 Hours - Advance Directives Does patient have a Living Will: Yes Does patient have a Durable POA for Healthcare: Yes - Code Status/Comfort Care Code Status Assessed: No Code Status: Full Code Critical Care: No Time Spent Managing PTS Care (In Minutes): 50
[2018-01-26 17:47] LABS: Hematocrit 27.6 % (39.6-49.0)
--- NOTE | 2018-01-26 17:53 | P.PN ---
Subjective Date of Service: 01/26/18 Chief Complaint: Anemia of chronic disease/acute blood loss anemia Patient seen and examined at bedside. No family at bedside. Case discussed with nursing staff. No new complaints concerns today. Review of Systems As noted Physical Examination - Vital Signs Temperature: 98.4 F Blood Pressure: 95/58 Pulse: 71 Respirations: 18 Pulse Ox (%): 98 - Physical Exam General: Alert, In no apparent distress, Oriented x3 HEENT: Atraumatic, PERRLA, EOMI Neck: Supple, JVD not distended Respiratory: Clear to auscultation bilaterally, Normal air movement Cardiovascular: Regular rate/rhythm, Normal S1 S2 Gastrointestinal: Normal bowel sounds, No tenderness Musculoskeletal: No tenderness Integumentary: No rashes Neurological: Normal speech, Normal tone, Normal affect Lymphatics: No axilla or inguinal lymphadenopathy Assessment And Plan - Plan Assessment & Plan - Problems (Diagnosis) (1) Bladder cancer metastasized to liver Current Visit: Yes Status: Acute (2) Anemia due to acute blood loss Current Visit: Yes Status: Acute (3) Generalized weakness Current Visit: Yes Status: Acute (4) Shortness of breath Current Visit: Yes Status: Acute - Plan 1. Type and cross 2 units of packed red blood cells and transfused. Recheck hemoglobin would not enough elevation, will transfuse 1 more unit. Recheck H& H. If increase, can discharge home 2. Continue with IV antibiotics 3. Continue with pain control 4. NPO 5. Urology consultation; outpatient cystoscopy in 1-2 weeks 6. Serial H&H, and we will monitor CBC, BMP, LFTs and lipase along with electrolytes. 7. GI and DVT prophylaxis Discharge Plan: Home Plan to discharge in: 24 Hours
[2018-01-26] MEDS: ENSURE HIGH PROTEIN 237 ML CAN PO SCH (20:22)
[2018-01-27] MEDS: MORPHINE 4 MG/ML SYR IV PRN ×4 (03:15→22:24)
[2018-01-27 05:32] LABS: Absolute Lymphocytes (CBC) 0.9 K/uL (0.7-4.9); Absolute Monocytes 0.5 K/uL (0.1-1.3); Absolute Neutrophil 1.9 K/uL (1.8-8.0); Eosinophils % 3.7 % (0-4.4); Hematocrit 25.2 % (39.6-49.0); Lymphocytes % 27.1 % (15.3-44.8); MCH 23.3 pg (27.0-35.0); MCV 73.1 fL (80-100); MPV 8.2 fL (7.6-11.3); Monocytes % 14.6 % (3.3-12.3); RBC Red Blood Cell Count 3.44 M/uL (4.33-5.43)
[2018-01-27 05:56] LABS: ALT/SGPT 28 U/L (12-78); AST/SGOT 73 U/L (15-37); Albumin 2.7 g/dL (3.4-5.0); Alkaline Phosphatase 165 U/L (45-117); BUN Blood Urea Nitrogen 14 mg/dL (7-18); Bicarbonate 28 mmol/L (21-32); Bilirubin Total 0.8 mg/dL (0.2-1.0); Glucose Level 89 mg/dL (74-106); Magnesium 2.1 mg/dL (1.8-2.4); Phosphorus 3.2 mg/dL (2.5-4.9); Potassium 4.7 mmol/L (3.5-5.1); Protein, Total 6.4 g/dL (6.4-8.2); Sodium Level 140 mmol/L (136-145)
[2018-01-27] MEDS: ENSURE HIGH PROTEIN 237 ML CAN PO SCH ×2 (09:15→20:35)
[2018-01-27] MEDS: NA CHLORIDE 0.9% 1,000 ML IV SCH (18:33)
--- NOTE | 2018-01-27 23:14 | P.PN ---
Subjective Date of Service: 01/27/18 Chief Complaint: Anemia of chronic disease/acute blood loss anemia Patient seen and examined at bedside. Daughter at bedside. Case discussed with nursing staff. States he is having intermittent episodes of dizziness at times, especially if he moves too fast. Review of Systems As noted Physical Examination - Vital Signs Temperature: 98.1 F Blood Pressure: 105/64 Pulse: 69 Respirations: 20 Pulse Ox (%): 97 - Physical Exam General: Alert, In no apparent distress, Oriented x3 HEENT: Atraumatic, PERRLA, EOMI Neck: Supple, JVD not distended Respiratory: Clear to auscultation bilaterally, Normal air movement Cardiovascular: Regular rate/rhythm, Normal S1 S2 Gastrointestinal: Normal bowel sounds, No tenderness Musculoskeletal: No tenderness Integumentary: No rashes Neurological: Normal speech, Normal tone, Normal affect Assessment And Plan - Plan Assessment & Plan - Problems (Diagnosis) (1) Bladder cancer metastasized to liver Current Visit: Yes Status: Acute (2) Anemia due to acute blood loss Current Visit: Yes Status: Acute (3) Generalized weakness Current Visit: Yes Status: Acute (4) Shortness of breath Current Visit: Yes Status: Acute - Plan 1. Repeat H&H stable 2. Continue with pain control 4. Regular diet 5. Urology consultation; outpatient cystoscopy in 1-2 weeks 6. Serial H&H, and we will monitor CBC, BMP, LFTs and lipase along with electrolytes. 7. Dizziness, likely secondary to anemia. Recheck H&H, may need to transfuse. 8. GI and DVT prophylaxis Disposition: Poor overall prognosis due to his advanced hepatocellular cancer along with bladder cancer. Discussed other options, including hospice care, etc with patient and daughter. Patient agreed that he would like to be a DNR. Will discuss with Social work for out of hospital paperwork. Pending symptomatic improvement with possible transfsion tomorrow. Likely dc home tomorrow.
[2018-01-28] MEDS: MORPHINE 4 MG/ML SYR IV PRN ×2 (01:59→06:02)
[2018-01-28] MEDS: NA CHLORIDE 0.9% 1,000 ML IV SCH (02:00)
[2018-01-28 06:55] LABS: ALT/SGPT 31 U/L (12-78); AST/SGOT 75 U/L (15-37); Albumin 2.7 g/dL (3.4-5.0); Alkaline Phosphatase 171 U/L (45-117); BUN Blood Urea Nitrogen 13 mg/dL (7-18); Bicarbonate 26 mmol/L (21-32); Bilirubin Total 0.6 mg/dL (0.2-1.0); Glucose Level 97 mg/dL (74-106); Potassium 4.2 mmol/L (3.5-5.1); Protein, Total 6.4 g/dL (6.4-8.2); Sodium Level 139 mmol/L (136-145)
[2018-01-28 06:59] LABS: Absolute Monocytes 0.4 K/uL (0.1-1.3); Absolute Neutrophil 1.7 K/uL (1.8-8.0); Eosinophils % 3.9 % (0-4.4); Hematocrit 25.3 % (39.6-49.0); MCV 73.4 fL (80-100); Monocytes % 13.1 % (3.3-12.3); RBC Red Blood Cell Count 3.45 M/uL (4.33-5.43)
[2018-01-28] MEDS: ENSURE HIGH PROTEIN 237 ML CAN PO SCH (08:14)
[2018-01-28 12:42] VITALS: BP 115/56; TEMP 97.7
[2018-01-28 16:40] VITALS: O2SAT 93
== END 2018-01-28 17:00 | disposition home or self-care (01) | DRG 687 ==
LOC: ER 15:49 → ERHOLD 17:46 → 4TH 19:37
PROVIDERS: ADMIT Family Medicine; ATTEND Family Medicine
PROC: 30233N1 Transfusion of Nonautologous Red Blood Cells into Peripheral Vein, Percutaneous Approach (ICD-10-PCS; principal; 2018-01-25)
DX: C67.9 Malignant neoplasm of bladder, unspecified (principal); D62 Acute posthemorrhagic anemia; C78.7 Secondary malignant neoplasm of liver and intrahepatic bile duct; D63.0 Anemia in neoplastic disease; B19.20 Unspecified viral hepatitis C without hepatic coma; J44.9 Chronic obstructive pulmonary disease, unspecified; Z87.891 Personal history of nicotine dependence; Z66 Do not resuscitate
CPT/HCPCS: 36415; 36430; 70450; 71045; 71260; 74177; 80048; 80053; 80076; 82140; 83735; 83880; 84100; 84484; 85014; 85018; 85025; 85610; 86850; 86900; 86901; 87040; 93005; 94760; 96374; 96375; 99285; J2405; J2765; J3010; J7030; P9016; Q9967